=== PATIENT | male | born 1960 | race Caucasian/White ===

== ENCOUNTER 2023-03-06 16:11 | Emergency (ER) | payer OTHER, SELFPAY ==
[2023-03-06 16:17] VITALS: BP 150/79; PULSE 86; RESP 16; TEMP 36.7; O2SAT 97
--- NOTE | 2023-03-06 16:32 | PC.NURSE ---
States that he was slightly exerting himself more than usual. 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 Pt states that his veins are more pronounced than usual. Pt denies any trauma or injury. Pt has no redness or swelling to either calf. Denies any blood thinners. Hx migraines, HTN,
--- NOTE | 2023-03-06 16:50 | ED.EXTPRO ---
HPI - Extremity Problem General Chief complaint: Extremity Problem,Nontraumatic Stated complaint: left leg pain Time Seen by Provider: 03/06/23 16:49 Source: patient History of Present Illness HPI Narrative: Patient is 62 years old white male came to the emergency room by private car complaining of calf pain bilaterally mainly on the left side started 2 days ago. 3 days ago patient went to the a [employer] looking for something for his car, quite a bit of walking on even ground and up and down presenting to material for 2-1/2 hours, did not have any complaint at that day, work-up at the second day with the above symptoms. He denies any trauma, shortness of breath, fever, chills or swelling of the leg. Related Data Home Medications Medication Instructions Recorded Confirmed dexamethasone 4 mg tablet 4 mg PO BID 03/04/23 03/04/23 lisinopril 40 mg tablet 40 mg PO DAILY 03/04/23 03/04/23 Allergies Allergy/AdvReac Type Severity Reaction Status Date / Time No Known Allergies Allergy Verified 03/06/23 16:30 Review of Systems Review of Systems: All systems reviewed & are unremarkable except as noted in HPI and below PMFSH Past Medical History Medical History HTN (hypertension) Surgical History Surgical History History of fusion of cervical spine History of lumbar fusion L4-5 History of tibial fracture s/p ORIF R Family History Family History Father Lung cancer Mother Lung cancer Hypertension Social History Social History Smoking status: Never smoker Alcohol intake: never Substance use: never Living arrangements: with family Occupation/Education: occupation Gender identity (if verbalized by the patient): Male Exam Narrative: General appearance: Well-developed, well-nourished Skin: Normal color , Leg examination bilaterally showed no acute abnormality, no tenderness, no swelling, no erythema, no rash, no edema Chest and respiratory: Airway patent, no respiratory distress, no accessory muscle use Heart: Regular rate/rhythm Abdomen: Soft, nontender, no organomegaly, quiet bowel sounds Vascular: Normal peripheral pulses, normal capillary refill. Musculoskeletal: Normal range of motion, nontender back Neurologic: Alert and oriented ?3, BRO[place]MARE BARN GROOM is normal as tested, no gross motor deficit Course Reevaluation(s) Reevaluation #1: No new changes compared to on arrival to the ED. Patient declined to take any pain medication in the ER. Date: 03/06/23 Time: 17:59 Vital Signs Vital signs: Vital Signs Temperature 36.7 C 03/06/23 16:17 Pulse Rate 86 03/06/23 16:17 Respiratory Rate 16 03/06/23 16:17 Blood Pressure 150/79 H 03/06/23 16:17 Pulse Oximetry 97 03/06/23 16:17 Oxygen Delivery Room Air 03/06/23 16:17 Temperature 36.7 C 03/06/23 16:17 Pulse Rate 86 03/06/23 16:17 Respiratory Rate 16 03/06/23 16:17 Blood Pressure 150/79 H 03/06/23 16:17 Pulse Oximetry 97 03/06/23 16:17 Oxygen Delivery Room Air 03/06/23 16:17 MDM - Extremity (Nontraumatic) MDM Narrative Medical decision making narrative: Patient presents with calf pain bilaterally mainly on the left side, physical examination was unremarkable, differential diagnosis muscle strain/sprain is my concern after 2-1/2 hours working in the [employer]. D-dimer came back within normal limit, the probability of deep vein thrombosis is extremely less likely. Patient to be discharged home on Tylenol, ibuprofen as needed.
[2023-03-06 17:48] LABS: D Dimer < 0.27 ug/mL (<0.48)
[2023-03-06 18:16] VITALS: BP 138/68; PULSE 78; RESP 16; TEMP 36.8; O2SAT 98
== END 2023-03-06 18:18 | disposition home or self-care (01) ==
PROVIDERS: Emergency Provider Emergency Medicine; PCP Family Medicine
DX: M79.662 Pain in left lower leg (principal); I10 Essential (primary) hypertension
CPT/HCPCS: 36415; 85380; 99283

== ENCOUNTER 2023-04-13 11:02 | Outpatient (CLI) | payer OTHER, SELFPAY ==
[2023-04-13 12:12] LABS: Creatine Kinase 418 U/L (55-170)
[2023-04-13 12:15] LABS: Rheumatoid Factor < 12.0 IU/ML (<12)
[2023-04-13 12:39] LABS: Free T4 Free Thyroxine 1.04 ng/mL (0.78-2.19)
== END 2023-04-13 11:03 | disposition home or self-care (01) ==
PROVIDERS: PCP Family Medicine; Visit Provider Physician Assistant
DX: G47.00 Insomnia, unspecified (principal); M54.12 Radiculopathy, cervical region; M60.9 Myositis, unspecified; R20.2 Paresthesia of skin; R25.1 Tremor, unspecified; R25.3 Fasciculation
CPT/HCPCS: 36415; 82550; 84439; 84443; 86430

== ENCOUNTER 2023-04-23 06:33 | Outpatient (CLI) | payer OTHER, SELFPAY ==
--- NOTE | ~2023-04-23 | US_ITS ---
EXAMINATION: US venous doppler [facility] DATE: 04/23/2023 07:36 INDICATION: Localized lower limb swelling TECHNIQUE: Grayscale ultrasound images without and with compression and Doppler ultrasound images of the bilateral lower extremity veins were obtained. COMPARISON: None. FINDINGS: The visualized portions of right common femoral vein, profunda (deep) femoral vein, femoral vein, pop liteal vein, posterior tibial veins, peroneal veins, gastrocnemius vein and greater saphenous vein ou tflow are patent. The visualized portions of left common femoral vein, profunda femoral vein, femoral vein, popliteal v ein, posterior tibial veins, peroneal veins, gastrocnemius vein and greater saphenous vein outflow ar e patent. IMPRESSION: 1. No deep venous thrombosis in either lower limb. Reviewed, dictated and finalized at location L.
== END 2023-04-23 06:34 | disposition home or self-care (01) ==
PROVIDERS: PCP Family Medicine; Visit Provider Physician Assistant
DX: R60.0 Localized edema (principal)
CPT/HCPCS: 93970

== ENCOUNTER 2023-05-11 06:40 | Outpatient (CLI) | payer OTHER, SELFPAY ==
--- NOTE | ~2023-05-11 | MR_ITS ---
EXAMINATION: MR cervical spine wo con DATE: 05/11/2023 07:37 INDICATION: Cervical radiculopathy TECHNIQUE: Magnetic resonance imaging (MRI) of the cervical spine was performed without intravenous c ontrast. Sequences included sagittal T2-weighted FSE, sagittal T2-weighted FS FSE, sagittal T1-weight ed FSE, axial MERGE and axial T2-weighted FSE. COMPARISON: None FINDINGS: 2 mm retrolisthesis C6 on C7 and 1 mm anterolisthesis C7 on T1. Discectomy and anterior spinal fusion with anterior plate and screw fixation at C5-C6. Remaining vertebral body heights are normal. Bone marrow signal intensity is normal. Moderate disc height loss at C6-C7 and mild disc height loss at C2 -C3 through C4-C5 and at C7-T1. Cord signal intensity is normal. The visualized cervical soft tissues are unremarkable. The following disc levels are specifically discussed: C2-C3: The disc does not extend beyond the endplate margin. There is mild left and moderate right unc overtebral joint osteoarthritis. There is mild bilateral facet joint osteoarthritis. There is mild bi lateral neural foraminal stenosis. There is no central canal stenosis. C3-C4: The disc does not extend beyond the endplate margin. There is mild right and moderate left unc overtebral joint osteoarthritis. There is mild right and moderate left facet joint osteoarthritis. Th ere is mild right and moderate left neural foraminal stenosis. There is no central canal stenosis. C4-C5: Disc is mildly bulging. There is mild bilateral uncovertebral joint osteoarthritis. There is m ild bilateral facet joint osteoarthritis. There is mild left and moderate right neural foraminal sten osis. There is mild central canal stenosis. C5-C6: Mild hypertrophic changes extending across the right paracentral portion of the fused disc spa ce. There is mild bilateral facet joint osteoarthritis. There is mild right and mild to moderate left neural foraminal stenosis. There is mild central canal stenosis with indentation of the right ventra l surface of the cord. C6-C7: Disc is bulging with central disc extrusion with disc material extending 4 mm caudal to the le ken of the superior endplate of C7. There is moderate left and severe right uncovertebral joint osteo arthritis. There is mild bilateral facet joint osteoarthritis. There is moderate bilateral neural for aminal stenosis. There is no central canal stenosis. C7-T1: The disc does not extend beyond the more posterior T1 endplate margin. There is no uncovertebr al joint osteoarthritis. There is severe bilateral facet joint osteoarthritis. There is moderate bila teral neural foraminal stenosis. There is no central canal stenosis. IMPRESSION: 1. Moderate cervical spondylosis with instrumented C5-C6 anterior spinal fusion. Reviewed, dictated and finalized at location A. IMPRESSION: 1. Moderate cervical spondylosis with instrumented C5-C6 anterior spinal fusion .
== END 2023-05-11 06:41 | disposition home or self-care (01) ==
PROVIDERS: PCP Family Medicine; Visit Provider Physician Assistant
DX: S14.3XXA Injury of brachial plexus, initial encounter (principal); X58.XXXA Exposure to other specified factors, initial encounter; M47.22 Other spondylosis with radiculopathy, cervical region
CPT/HCPCS: 72141

== ENCOUNTER 2023-07-14 14:30 | Outpatient (CLI) | payer OTHER, SELFPAY ==
--- NOTE | ~2023-07-14 | MR_ITS ---
EXAMINATION: MR lumbar spine wo con DATE: 07/14/2023 15:04 INDICATION: Dorsalgia, unspecified. TECHNIQUE: Magnetic resonance imaging (MRI) of the lumbar spine was performed without intravenous con trast. COMPARISON: None FINDINGS: There is 6 degrees levocurvature of lumbar spine. There is 3 mm retrolisthesis of L2 on L3, L3 on L4, and L4 on L5. There are Schmorl's nodes at multiple levels. There is mild chronic anterior wedging of T12 and L1 vertebral bodies. There is mildly decreased disc height at L2-L3, L3-L4, and L 4-L5. The distal spinal cord signal intensity is normal. The conus medullaris is at L1-L2. The follow ing disc levels are specifically discussed: L1-L2: The disc is mildly bulging. There is moderate right and mild left facet joint osteoarthritis. There is mild bilateral neural foraminal stenosis. There is no central canal stenosis. L2-L3: The disc is bulging. There is mild right and severe left facet joint osteoarthritis. There is mild right and moderate left neural foraminal stenosis. There is mild central canal stenosis. L3-L4: The disc is bulging and has an annular fissure. There is moderate bilateral facet joint osteoa rthritis. There is moderate bilateral neural foraminal stenosis. There is mild central canal stenosis with posterior decompression. L4-L5: The disc is bulging and has an annular fissure. There is moderate right and severe left facet joint osteoarthritis. There is moderate bilateral neural foraminal stenosis. There is mild central ca nal stenosis with posterior decompression. L5-S1: The disc is bulging and has an annular fissure. There is mild bilateral facet joint osteoarthr itis. There is mild bilateral neural foraminal stenosis. There is mild central canal stenosis with po sterior decompression. IMPRESSION: 1. Moderate lumbar spondylosis. Reviewed, dictated and finalized at location E.
== END 2023-07-14 14:31 | disposition home or self-care (01) ==
PROVIDERS: PCP Family Medicine; Visit Provider Neurological Surgery
DX: M54.9 Dorsalgia, unspecified (principal); M43.06 Spondylolysis, lumbar region
CPT/HCPCS: 72148

== ENCOUNTER 2023-12-29 08:02 | Day surgery (SDC) | payer OTHER, SELFPAY ==
--- NOTE | ~2023-12-29 | XR_ITS ---
EXAMINATION: XR fluoroscopy no charge DATE: 12/29/2023 10:34 INDICATION: Lumbar spinal stenosis with neurogenic claudication. Lumbar radiculopathy. TECHNIQUE: 38 intraoperative fluoroscopic views of the lumbar spine were obtained. I was not present. Fluoroscopy exposure time was 74 seconds. COMPARISON: None. FINDINGS: There is moderate lumbar spondylosis. There is a needle for selective nerve root block at L 4. IMPRESSION: 1. Moderate lumbar spondylosis. 2. Right L4 nerve root block. Reviewed, dictated and finalized at location E.
[2023-12-29 09:34] VITALS: BP 123/70; PULSE 74; RESP 14; TEMP 36.7; O2SAT 99
--- NOTE | 2023-12-29 09:42 | PM.HPGS ---
History of Present Illness History of Present Illness Consent: Risks, benefits, and alternatives have been discussed and questions answered. Patient agrees to proceed with procedure. Chief complaint: Lumbar Spinal Stenosis w/Neurogenic Claudication Narrative: Surjit Flaherty is a 63 year old male with chronic, recalcitrant and disabling right lumbar radiculopathic pain secondary to lumbar spondylosis/stenosis with failure to respond to aggressive conservative measures including PT, oral and topical analgesics, opioid and nonopioid analgesics, rest, time and activity/behavioral modification over the past 1-2 years who presents for diagnostic/ therapeutic L4 selective nerve root block with steroid under fluoroscopic guidance and with contrast control. Review of Systems Review of Systems: Patient denies any new infectious, allergic, cardiopulmonary, neurologic or constitutional symptoms or changes in activity tolerance or exercise capacity including new or progressive SOB/SCHUMACHER, peripheral edema, productive cough, dysuria, nausea/vomiting, diarrhea, weight change, fevers/chills/night sweats, new or progressive neurologic deficit, cognitive or mood changes since last seen, except as documented in the HPI. All systems reviewed & are unremarkable except as noted in HPI and below PMFSH Past Medical History Medical History HTN (hypertension) Surgical History Surgical History History of fusion of cervical spine History of lumbar fusion L4-5 History of tibial fracture s/p ORIF R Family History Family History Father Lung cancer Mother Lung cancer Hypertension Social History Social History Smoking status: Never smoker Second hand tobacco smoke exposure: No Alcohol intake: current Alcohol use details: rarely Substance use: never Substance use type: does not use Lack of Transportation: No Lack of Food: Never True Current Housing: I Have Housing Concerned About Future Housing: No Difficulty Paying Gas/Electric Bills: No Difficulty Paying for Meds: No Currently Unemployed: YES Education: Master's Degree or Higher Difficulty w/ Childcare or Family Care: No Living arrangements: with family Occupation/Education: occupation Gender identity (if verbalized by the patient): Male Spiritual care concerns: No Meds Home Medications and Allergies Home Medications Medication Instructions Recorded Confirmed Type lisinopril 40 mg tablet 40 mg PO DAILY 03/04/23 12/29/23 History hydrocodone 5 mg-acetaminophen 325 1 tablet PO Q8H PRN pain #10 tabs 11/23/23 12/29/23 Rx mg tablet acetaminophen 500 mg tablet 750 mg PO Q6H PRN Pain 12/11/23 12/29/23 History gabapentin 100 mg capsule 100 - 200 mg PO HS 12/11/23 12/29/23 History (Neurontin) tamsulosin 0.4 mg capsule 0.4 mg PO QHS PRN other 12/11/23 12/29/23 History topiramate 25 mg tablet 25 mg PO HS 12/11/23 12/29/23 History Allergies Allergy/AdvReac Type Severity Reaction Status Date / Time No Known Allergies Allergy Verified 12/29/23 09:20 Vital Signs Vital Signs - 24 hr 12/29/23 09:34 Temperature 98.0 F Pulse Rate 74 Respiratory Rate 14 Blood Pressure 123/70 Pulse Oximetry 99 Oxygen Delivery Room Air Exam Narrative: The patient's physical exam is essentially unchanged from prior examination on 11/23/2023. Specifically, patient demonstrates normal lung capacity, tidal volume and respiratory rate without wheezes, crackles, rales or rubs. Heart rate and rhythm are regular without murmurs, gallops or rubs. No JVD. Pulses 2+ globally without increasing peripheral edema. AAOx3, NC/AT without acute distress or altered consciousness. Speech, cognition, mood and judgment at baseline and within normal limits. Assessment
--- NOTE | 2023-12-29 09:45 | WPDHPUPDATE1 ---
History and Physical Update Update Date/Time: 12/29/23 09:45 History and Physical has been reviewed, including an updated exam of the patient. There are NO changes in the patient's condition. Risks, benefits, and alternatives have been discussed and questions answered. Patient agrees to proceed with procedure.
--- NOTE | 2023-12-29 09:45 | W.PM.PROC2 ---
Procedure Note - Detailed Date of Procedure 12/29/23 Pre-op Diagnosis Lumbar Spinal Stenosis w/Neurogenic Claudication , lumbar radiculopathy Post-op Diagnosis Same Procedure Performed Right Lumbar selective nerve root block via Transforaminal approach under Fluoroscopic Guidance and with Contrast Control at L4.. Surgeon Hector Cain MD Anesthesia Local Description of Procedure INFORMED CONSENT: Risks, benefits and alternatives to the procedure were discussed in detail with the patient who expressed explicit understanding and consent to proceed. Patient was informed verbally and in written form regarding the risks associated with the procedure including the low risk of serious infection, bleeding/bruising, allergic reaction, nerve or organ injury, paralysis, procedural site pain or discomfort, worsening pain and/or mobility, failure to treat and/or disfigurement. The patient expressed explicit understanding and consent to proceed. All materials required for the procedure were available prior to procedure start. Site and side was marked prior to procedure and confirmed in the presence of the patient. PROCEDURE IN DETAIL: The patient was brought to the procedural suite and placed in the prone position. Patient was made comfortable with use of pillows under the head/chest, hips and ankles. Skin overlying the injection site was prepared broadly with ChloraPrep applicator and draped in a sterile manner. Aseptic technique was employed throughout. The endplates of the vertebral body at the site of interest were aligned in the AP view. Ipsilateral oblique angulation was utilized to better visualize the neuroforamen of interest. Local anesthesia was established by infiltration with approximately 5 mL of 2% lidocaine via a 1-1/2 inch 27-gauge needle. A 22-gauge 3.5 inch Adelita (pencil point) spinal needle was advanced until the needle approached the 6 o'clock position on the pedicle just superior to the exiting nerve root. on the Right at the L4 nerve root within the L4-5 neural foramen. Lateral view was utilized to confirm appropriate position of the needle tip within the superior and posterior portion of the respective foramen. In an AP view, 1 mL of Omnipaque 300 contrast medium was injected after negative aspiration for CSF, blood or other bodily fluid, showing appropriate neurogram without evidence of intravascular or intrathecal spread of contrast. Digital subtraction imaging was used with an additional 1ml of the same contrast medium to confirm absence of intravascular contrast spread. A 2mL solution containing 3 mg of betamethasone in 0.5% preservative-free bupivacaine was injected after negative repeat aspiration. Appropriate spread of the injectate was confirmed with washout of previously injected contrast. No parasthesias were elicited. Needle was removed completely intact without difficulty. Images were saved and documented in the patient chart. Patient's skin was cleaned and sterile bandage applied. The patient tolerated the procedure well. The patient was transported to the recovery area in stable condition where they were observed for an appropriate amount of time prior to discharge, without evidence of complication. The patient was instructed to avoid excessive activity for the next 48 hours, including climbing and frequent use of stairs. Showers only for 48 hours. They were instructed not to drive or operate heavy machinery for 24 hours. They are to monitor for severe headaches, fevers, chills, night sweats, erythema/swelling at the site or any other signs of infection, bleeding/bruising, bowel or bladder changes as well as new pain, weakness or numbness in the upper or lower extremity. Should they notice these changes, they are instructed to call our office immediately or report directly to the nearest Emergency Department if no answer or if after posted office hours. COMPLICATIONS: None COMMENTS: no paresthesias elicited. Neurogram showe
[2023-12-29 10:19] VITALS: BP 116/63; PULSE 70; RESP 14; O2SAT 98
[2023-12-29 10:24] VITALS: BP 105/58; PULSE 64; RESP 14; O2SAT 98
[2023-12-29 10:29] VITALS: BP 105/56; PULSE 72; RESP 15; O2SAT 98
[2023-12-29] MEDS: BETAMETHASONE SODIUM PHOSPHATE PF INJ 6 MG/ML VIAL 3 MG INFILTRATE (10:30)
[2023-12-29] MEDS: BUPivacaine HCL 0.5% 10 ML AMP 1.5 ML INFILTRATE (10:30)
[2023-12-29] MEDS: LIDOCAINE HCL 2% PF INJ 5 ML VIAL 3 ML INFILTRATE (10:31)
[2023-12-29] MEDS: LIDOCAINE HCL 1% PF INJ 5 ML VIAL 2 ML INFILTRATE (10:32)
[2023-12-29 10:41] VITALS: BP 127/72; PULSE 73; RESP 16; O2SAT 100
== END 2023-12-29 10:50 | disposition home or self-care (01) ==
PROVIDERS: PCP Family Medicine; Visit Provider Anesthesiology Pain Medicine
PROC: (CPT 64483; principal; 2023-12-29 10:00)
DX: M54.16 Radiculopathy, lumbar region (principal); M48.062 Spinal stenosis, lumbar region with neurogenic claudication
CPT/HCPCS: 64483; 99199

== ENCOUNTER 2024-03-02 10:01 | Outpatient (CLI) | payer OTHER, SELFPAY ==
--- NOTE | ~2024-03-02 | XR_ITS ---
XR hip BI 2V w AP pelvis Ordering provider: Boby Fuller MD History: . M25.559 - Pain in unspecified hip . Comparison: None. FINDINGS: BONES: No acute fracture or dislocation. HIP JOINT SPACES: Normal. SACROILIAC JOINT SPACES/LUMBAR SPINE: The sacroiliac joint spaces are normal. Mild degenerative weber es of the visualized lower lumbar spine. Postoperative changes in the lower lumbar area. PUBIC SYMPHYSIS: Normal. SOFT TISSUES: Normal. IMPRESSION: No acute osseous abnormality of the bilateral hips and pelvis. Reviewed, dictated and finalized at location A.
== END 2024-03-02 10:02 ==
PROVIDERS: PCP Family Medicine; Visit Provider Family Medicine
DX: M25.559 Pain in unspecified hip (principal)
CPT/HCPCS: 73521

== ENCOUNTER 2024-06-20 07:53 | Outpatient (CLI) | payer OTHER, SELFPAY ==
--- NOTE | ~2024-06-20 | MR_ITS ---
MRI of the brain Clinical History: Anesthesia of skin Technique: Axial and sagittal T1-weighted images were acquired. These were followed by axial T2-weigh po, diffusion weighted, gradient, and FLAIR images. Findings: No signal abnormality seen in the brain parenchyma. No acute infarct, intracranial hemorrha ge, or mass lesion. Ventricles and subarachnoid spaces are unremarkable. Orbits are unremarkable. Paranasal sinuses and m astoid air cells are clear. Major intracranial flow voids are intact. Sagittal midline structures are intact. IMPRESSION: Unremarkable exam. Reviewed, dictated and finalized at location M. IMPRESSION: Unremarkable exam.
--- NOTE | ~2024-06-20 | CT_ITS ---
CT of the Abdomen and Pelvis: Indication: Localized edema Technique: 2.5 mm axial scans were obtained through the abdomen and pelvis following intravenous adm inistration of 100 cc of Omnipaque 350. Dose reduction technique was used on this scan by utilizing a utomated exposure control and iterative reconstruction technique. The dose-length product (DLP) was 7 52.28 mGy-cm. Findings: Scans through the lung bases are unremarkable. The liver, spleen, pancreas, gallbladder, and adrenal glands are within normal limits. Right upper po le simple cyst present. There is a 1.4 cm indeterminate density partially exophytic mass at the left lower renal pole (axial image 92). No evidence of aortic aneurysm. No lymphadenopathy. No bowel obstruction or bowel wall thickening. There is no evidence to suggest acute appendicitis. Images through the pelvis were performed. Urinary bladder unremarkable. No pelvic mass evident. No as cites. Penile prosthesis with reservoir present. Impression: 1.4 cm indeterminate left lower pole renal mass. Pre and postcontrast CT or MR recommended to assess for solid lesion versus cystic lesion. Reviewed, dictated and finalized at [facility]. Impression: 1.4 cm indeterminate left lower pole renal mass. Pre and postcontrast CT or MR recommended to assess for solid lesion versus cystic lesion.
[2024-06-20 08:16] LABS: Estimated Glomerular Filt Rate > 60
== END 2024-06-20 07:54 | disposition home or self-care (01) ==
PROVIDERS: PCP Family Medicine; Visit Provider Physician Assistant
DX: N28.89 Other specified disorders of kidney and ureter (principal); R20.0 Anesthesia of skin; R60.0 Localized edema
CPT/HCPCS: 70551; 74177; Q9967

== ENCOUNTER 2024-06-30 08:03 | Outpatient (CLI) | payer OTHER, SELFPAY ==
--- NOTE | ~2024-06-30 | CT_ITS ---
CT of the Abdomen: Indication: Left lower pole renal mass Technique: 2.5 mm axial scans were obtained through the abdomen prior to and following intravenous a dministration of 100 cc of Omnipaque 350. Dose reduction technique was used on this scan by utilizing automated exposure control and iterative reconstruction technique. The dose-length product (DLP) was 1035.25 mGy-cm. COMPARISON: 06/20/2024 Findings: Scans through the lung bases demonstrates stable 6 mm nodule along the right fissure near the hilum (axial image 8).. The liver, spleen, pancreas, gallbladder, and adrenal glands are within normal limits. Stable simple right renal cyst. 1.2 cm lesion at the lower pole left kidney is hyperdense on precontrast images, wi th no postcontrast enhancement, most compatible with hyperdense/hemorrhagic cyst. No evidence of aort ic aneurysm. No lymphadenopathy. Visualized bowel loops are unremarkable. No ascites. Impression: The left lower pole renal mass is consistent with a hyperdense/hemorrhagic cyst. Reviewed, dictated and finalized at location . Impression: The left lower pole renal mass is consistent with a hyperdense/hemorrhagic cyst .
== END 2024-06-30 08:04 | disposition home or self-care (01) ==
PROVIDERS: PCP Family Medicine; Visit Provider Physician Assistant
DX: N28.89 Other specified disorders of kidney and ureter (principal)
CPT/HCPCS: 74170; Q9967

== ENCOUNTER 2024-08-02 11:34 | Emergency (ER) | payer OTHER, SELFPAY ==
[2024-08-02 11:37] VITALS: BP 123/68; PULSE 87; RESP 18; TEMP 36.4; O2SAT 97
--- NOTE | 2024-08-02 12:33 | ED_ITS ---
HPI - Extremity Problem General Chief complaint: Extremity Problem,Nontraumatic Stated complaint: RLE feels weird, pt. requesting d-dimer Time Seen by Provider: 08/02/24 12:21 Source: patient Mode of arrival: ambulatory Limitations: no limitations History of Present Illness HPI Narrative: This is a 64-year-old male who presents to the ED for chief complaint of RLE pain intermittently over the past few days. Reports that this has actually been a problem over the past year. He is requesting just a D-dimer today as it is feeling ?just different? compared to the left leg. Denies fevers, chills, nausea, vomiting, numbness, weakness. Related Data Home Medications Medication Instructions Recorded Confirmed lisinopril 40 mg tablet 40 mg PO DAILY 03/04/23 05/19/24 acetaminophen 500 mg tablet 750 mg PO Q6H PRN Pain 12/11/23 05/19/24 gabapentin 100 mg capsule 100 - 200 mg PO HS 12/11/23 05/19/24 (Neurontin) tamsulosin 0.4 mg capsule 0.4 mg PO QHS PRN other 12/11/23 05/19/24 topiramate 25 mg tablet 25 mg PO HS 12/11/23 05/19/24 Allergies Allergy/AdvReac Type Severity Reaction Status Date / Time No Known Allergies Allergy Verified 08/02/24 11:36 Review of Systems Review of Systems: All systems as dictated in HPI [facility] Past Medical History Medical History HTN (hypertension) Surgical History Surgical History History of fusion of cervical spine History of lumbar fusion L4-5 History of tibial fracture s/p ORIF R Family History Family History Father Lung cancer Mother Lung cancer Hypertension Social History Social History Smoking status: Never smoker Second hand tobacco smoke exposure: No Alcohol intake: current Alcohol use details: rarely Substance use: never Substance use type: does not use Lack of Transportation: No Lack of Food: Never True Current Housing: I Have Housing Concerned About Future Housing: No Difficulty Paying Gas/Electric Bills: No Difficulty Paying for Meds: No Currently Unemployed: YES Education: Master's Degree or Higher Difficulty w/ Childcare or Family Care: No Living arrangements: with family Occupation/Education: occupation Gender identity (if verbalized by the patient): Male Spiritual care concerns: No Exam Narrative: GENERAL: Well-appearing, well-nourished, and in no acute distress. HEAD: Normocephalic, atraumatic. EYES: PERRLA and EOMI. ENT: Nares clear, no rhinorrhea or epistaxis. Mucous membranes moist. Oropharynx without tonsillar hypertrophy exudate or other lesions. NECK: Supple. No adenopathy or masses. CHEST: No respiratory distress. Clear to auscultation. No wheezes rales or rhonchi HEART: Regular rate and rhythm. No murmur heard. Normal peripheral pulses. ABDOMEN: Soft, nontender, nondistended, normal active bowel sounds. MSK: Normal range of motion. No edema. SKIN: Warm, dry, no rash. NEURO: Alert and oriented x4. No focal deficits. PSYCH: Normal mood and affect. Course Vital Signs Vital signs: Vital Signs Temperature 97.6 F 08/02/24 11:37 Pulse Rate 87 08/02/24 11:37 Respiratory Rate 18 08/02/24 11:37 Blood Pressure 123/68 08/02/24 11:37 Pulse Oximetry 97 08/02/24 11:37 Oxygen Delivery Room Air 08/02/24 11:37 Temperature 97.9 F 08/02/24 13:44 Pulse Rate 78 08/02/24 13:44 Respiratory Rate 16 08/02/24 13:44 Blood Pressure 124/72 08/02/24 13:44 Pulse Oximetry 98 08/02/24 13:44 Oxygen Delivery Room Air 08/02/24 11:37 MDM - Extremity (Nontraumatic) MDM Narrative Medical decision making narrative: This is a 64-year-old male who presents to the ED for chief complaint of right lower extremity pain off and on for the past year and worse today. Reports it is just uncomfortable.. Vitals are normal. Exam is unremarkable. No history of DVT in the past. He is specifically requesting a D-dimer lab today and does not want any further evaluation. D-dimer is negative. Patient will be discharged in stable condition. Supportive measures discussed and return precautions given. Patient is understanding and agreeable with plan for discharge with PCP follow-up. Lab Data Labs: Lab Results 08/02/24 Range/Units 12:28 D-Dimer 0.29 (<0.48) ug/mL Discharge Plan Discharge Clinical Impression: Leg pain, right Patient Disposition: Home, Self-Care Condition: Stable Instructions: Antibiotic Form Additional Instructions: exam and blood work today reassuring. Please follow-up with PCP on this issue. Continue with your normal pain medications as prescribed. If you have any new or worsening symptoms please return to the ER for further evaluation. Prescriptions: No Action lisinopril 40 mg tablet 40 mg PO DAILY hydrocodone-acetaminophen 5-325 mg tablet 1 tablet PO Q8H PRN (Reason: pain) Qty: 10 0RF Rx Instructions: Take 1 tab p.o. Q 8-12 hours maximum 2 per day topiramate 25 mg tablet 25 mg PO HS acetaminophen 500 mg Tablet 750 mg PO Q6H PRN (Reason: Pain) tamsulosin 0.4 mg capsule 0.4 mg PO QHS PRN (Reason: other) gabapentin [Neurontin] 100 mg capsule 100 - 200 mg PO HS Follow-up/Referrals: Boby Fuller MD [Primary Care Provider] - Time of Disposition: 13:34
[2024-08-02 13:19] LABS: D Dimer 0.29 ug/mL (<0.48)
[2024-08-02 13:44] VITALS: BP 124/72; PULSE 78; RESP 16; TEMP 36.6; O2SAT 98
== END 2024-08-02 13:47 | disposition home or self-care (01) ==
PROVIDERS: Emergency Provider Physician Assistant; PCP Family Medicine
DX: M79.604 Pain in right leg (principal); I10 Essential (primary) hypertension; Z79.899 Other long term (current) drug therapy; Z98.1 Arthrodesis status
CPT/HCPCS: 36415; 85380; 99283

== ENCOUNTER 2024-12-06 10:43 | Outpatient (CLI) | payer OTHER, SELFPAY ==
--- OUTSIDE RECORDS SUMMARY | 2024-12-06 12:41 | XMS_ITS | Clinical Summary ---
Author Organization [facility] Address [address] [place] [address] Care Team Providers Care Furniture Sprayer Name Role Phone Feng Forrester MD Primary Care Provider [phone] Source Comments [facility],non-owned Affiliates and Associated Physician Practices is amultiple site organization consisting of ambulatory clinics and hospital sitesin [place], [place], [place] and [place]. This disclosure is being madepursuant to the Care Everywhere program and may not contain all information available regarding this patient. Last updated 18.[facility] Allergies Active Allergy Reactions Criticality Noted Date Comments Lidocaine Unknown Medications Be aware that medications may not be up to date on this document. Always verify current medications with the patient. No known medications Social History Tobacco Use Types Packs/Day Years Used Date Smoking Tobacco: Never Assessed Sex and Gender Information Value Date Recorded Sex Assigned at Not on file Gender Identity Not on file Sexual Orientation Not on file Plan of Treatment Health Maintenance Due Date Last Done Comments COLOGUARD (AGES 45-75) - COL ON CA SCREENING 1962 COLON MONITORING 1962 COLONOSCOPY - COLON CA SCREENING 1962 CT COLONOGRAPHY - COLON CA SCREENING 1962 Colorectal Cancer Screening 1962 FIT - COLON CA SCREENING 1962 FLEX SIG - COLON CA SCREENING 1962 LIPID TESTING 1962 HIV SCREENING 1977 HEPATITIS C SCREENING 07/15/1980 DTAP/TDAP/TD VACCINES (1 - Tdap) 1981 PNEUMOCOCCAL VACCINE 50+ (1 of 1 - PCV) 2012 ZOSTER VACCINE (1 of 2) 2012 COVID-19 VACCINE (2023-2 5 season) 2024 INFLUENZA VACCINE (#1) 2024 09/14/2013 DEPRESSION SCREENING 09/14/2024 Respiratory Syncytial Virus (RSV) Vaccine Pt: or over 60 yrs (1 - 1-dose 75+ series) 2037 HEPATITIS B VACCINE Aged Out No longe r eligible based on patient's age to complete this topic HIB VACCINE Aged Out No longer eligi ble based on patient's age to complete this topic HPV VACCINE Aged Out No longer eligi ble based on patient's age to complete this topic MENINGOCOCCAL (Group B) VACC INE SHARED DECISION-MAKING Aged Out No longer eligibl e based on patient's age to complete this topic MENINGOCOCCAL GROUPS A/C/Y/W VACCINE Aged Out No longer eligible b ased on patient's age to complete this topic PNEUMOCOCCAL VACCINE Aged Out No long er eligible based on patient's age to complete this topic Care Teams Furniture Sprayer Relationship Specialty Start Date End Date Feng Forrester MD PCP - General 02/25/19
--- OUTSIDE RECORDS SUMMARY | 2024-12-06 12:41 | XMS_ITS | Referral Summary ---
Author Organization [facility] Physician Office Building [address] [place] [id number] Care Team Providers Care Publication Editor Name Role Phone Boby Fuller MD Primary Care Provider Allergies Active Allergy Reactions Criticality Noted Date Comments Lidocaine Rash Medium Medications lisinopril (PRINIVIL,ZESTR IL) 40 mg tablet Take by mouth. 06/17/2016 Active dexAMETHasone (DECADRON) 4 mg tablet Take 1 tablet (4 mg total) by mouth 2 (two) times a day as needed 2 04/10/2019 Active magnesium oxide (MAG-OX) 400 mg (241.3 mg elemental magnesium) tablet Take 1 tablet (400 mg total) by mouth 2 (two) times a day Active baclofen (LIORESAL) 20 mg tablet Take 1 tablet (20 mg total) by mouth daily Active topiramate (TOPAMAX) 25 mg tablet Take 1 tablet (25 mg total) by mouth 2 (two) times a day 05/10/2024 Active gabapentin (NEURONTIN) 100 mg capsule Take 1 capsule (100 mg total) by mouth 2 (two) times a day Active Active Problems Problem Noted Date Diagnosed Date Depression 05/03/2019 GERD (gastroesophageal reflux disease) 9 Male erectile disorder 08/29/2015 Social History Tobacco Use Types Packs/Day Years Used Date Smoking Tobacco: Never Passive Smoke Exposure: Never Smokeless Tobacco: Never Tobacco Cessation:Counseling Given: Not Answered Sex and Gender Information Value Date Recorded Sex Assigned at Not on file 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 Gender Identity Not on file Sexual Orientation Not on file Last Filed Vital Signs Vital Sign Reading Time Taken Comments Blood Pressure 145/88 05/13/2024 2:53 PM CDT Pulse 106 05/13/2024 2:53 PM CDT Temperature - - Respiratory Rate - - Oxygen Saturation - - Inhaled Oxygen Concentration - - Weight 96.6 kg (213 lb) 05/13/2024 2:53 PM CDT Height 175.3 cm (5' 9 ) 05/13/2024 2:53 PM CDT Body Mass Index 31.45 05/13/2024 2:53 PM CDT Plan of Treatment Not on file Insurance [facility] Member Subscriber Plan / Payer (Ef fective 2016-Present) Name:Surjit Flaherty MD Relation to Subscriber:Self Name:Surjit Flaherty MD Payer ID:[id number] (NAIC) Type: FOCUS RESEARCH Address: [address] [facility] H[facility]/PPO Address: [address] [address] [place] [address] [facility] H[facility]/PPO Address: [address] [address] [place] [address] Care Teams Publication Editor Relationship Specialty Start Date End Date Boby Fuller MD [address] [facility] [address] [place] [address] PCP - General Family Medicine 05/06/24
--- OUTSIDE RECORDS SUMMARY | 2024-12-06 12:41 | XMS_ITS | Clinical Summary ---
Author Organization [facility] Address [address] [place] [phone] Phone Care Team Providers Care Pipe Straightener Name Role Phone Doroteo Ruffin MD Primary Care Provider [phone] Allergies Active Allergy Reactions Criticality Noted Date Comments Lidocaine Rash Medium 01/12/2023 Medications baclofen (LIORESAL) 20 mg tablet Take 20 mg by mouth 1 time daily as needed. Active methylphenidate HCl (RITALIN) 20 mg tablet Take 20 mg by mouth 2 times daily. Active ramipriL (ALTACE) 10 mg capsule Take 10 mg by mouth daily. 12/21/2022 Active Active Problems Problem Noted Date Diagnosed Date Male erectile disorder 08/29/2015 Immunizations Immunization Administration Dates Next Due Influenza Seasonal Unspecified Formulation IM Family History Medical History Relation Name Comments Other Brother 1 Spinal Stenosis Other Brother 2 Spinal Stenosis Cancer Father Other Father smoker/Spinal S tenosis Cancer Mother High Cholesterol Mother Hypertension Mother Other Mother smoker Other Other Aunt Spinal Stenosis Other Sister Spinal Stenosis Relation Name Status Comments Brother 1 Brother 2 Father Mother Other Aunt Alive Sister Social History Tobacco Use Types Packs/Day Years Used Date Smoking Tobacco: Never Smokeless Tobacco: Never Alcohol Use Standard Drinks/Week Comments No 0 (1 standard drink = 0.6 oz pur e alcohol) Sex and Gender Information Value Date Recorded Sex Assigned at Not on file Legal Sex Male 12:46 PM CDT Gender Identity Not on file Sexual Orientation Not on file Last Filed Vital Signs Vital Sign Reading Time Taken Comments Blood Pressure 140/72 01/12/2023 9:14 AM CDT Pulse 70 01/12/2023 9:14 AM CDT Temperature 37.1 C (98.8 F) 08/12/2022 2:04 PM FITNESS AND WELLNESS MANAGER Respiratory Rate 16 08/30/2015 8:29 AM FITNESS AND WELLNESS MANAGER Oxygen Saturation 98% 01/12/2023 9:14 AM CDT Inhaled Oxygen Concentration - - Weight 91.2 kg (201 lb) 01/12/2023 9:14 AM CDT Height 172.7 cm (5' 8 ) 01/12/2023 9:14 AM CDT Body Mass Index 30.56 01/12/2023 9:14 AM CDT Plan of Treatment Health Maintenance Due Date Last Done Comments PNEUMOCOCCAL VACCINE 0-49 YE ARS (1 of 2 - PCV) 1968 COLORECTAL SCREENING 2007 Colorectal Cancer Screening 2007 FIT-DNA Q 3 years 2007 FIT/FOBT Q 1 year 2007 Flex Sig/CT Colonography Q 5 years 2007 RSV VACCINE (60+ or ) (1 - Risk 60-74 years 1-dose series) 2022 INFLUENZA VACCINE (#1) 2024 2, 08/13/2021, 09/09/2018, Additional history exists DTAP/TDAP/TD VACCINES (2 - Tdap) 07/15/2024 07/15/20 14 ZOSTER VACCINE Completed 07/01/2022, 04/07/2022 Medical Devices Implanted Type Area Bus Washer Device Identifier Shelf Expiration Date Model / Serial / Lot Kit Assemly Penile Impl [id number] - [id number] Implanted:Qty: 1 on 08/29/2015 by Malik White MD at [facility] Other N/A: Penis COLOPLAST 02/20/2020 [id number] / / [id number] Description:Coloplast penile components were processed on requisition,[id number]. [place] [employer] [place] 75ml [id number] - [id number] Implanted:Qty: 1 on 08/29/2015 by Malik White MD at [facility] Penile N/A: Penis COLOPLAST 03/25/2020 [id number] / / [id number] Cylinder Set W/Pump Angled Implanted:Qty: 1 on 08/29/2015 by Malik White MD at [facility] Penile N/A: Penis COLOPLAST 12/05/2019 [id number] / / [id number] Insurance [facility] PREFERRED Advance Directives For more information, please contact: [phone] * Full Code (Latest Code Status on File) Date Activated Date Inactivated Comments 08/29/2015 2:32 PM 08/30/2015 11:23 AM * Full Code Date Activated Date Inactivated Comments 08/29/2015 10:05 AM 08/29/2015 2:32 PM Care Teams Pipe Straightener Relationship Specialty Start Date End Date Doroteo Ruffin MD #[address] [address] PCP - General Internal Medicine 03/25/22
--- OUTSIDE RECORDS SUMMARY | 2024-12-06 12:41 | XMS_ITS | Continuity of Care Document ---
Author Organization [facility] Address [address] [place] [address] [address] [place] [address] Phone Care Team Providers Care Quill Fixer Name Role Phone Analisa Lagos Unavailable Unavailable Advance Directives Directive Yes / No Effective Date File Name No Information Encounters Encounter Description Practice Location Reason(s) For Visit Diagnoses Date Provider Providers Copied on Encounter [facility], [address], [place], [place], [id number], [place] tel:[phone] [facility] No Information 0 7-200 2 Yolis Hauser. [address] , [address], [place], [address], [place]. tel:[phone] Family History Family Member Type Diagnosis Age At Onset No Information Payers Payer name Insurance type Covered green party ID Authoriza tion(s) [facility] Out Of State [id number] Social History Type Description Quantity Date Captured [...]
--- OUTSIDE RECORDS SUMMARY | 2024-12-06 12:41 | XMS_ITS | Clinical Summary ---
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 Gender Identity Not on file Sexual Orientation Not on file Obstetrics History Last Filed Vital Signs Vital Sign Reading [...] 05/13/2024 2:53 PM CDT Plan of Treatment Health Maintenance Due Date Last Done Comments Colon Cancer Screening-Colonoscopy 1962 Depression Screening 1962 Hepatitis C Screening 1962 Prostate Cancer Screening-PSA 1962 Hepatitis B Screening 1980 Regular Well Visit/Exam 18-64 1980 Pneumococcal vaccine <65 (1 of 2 - PCV) 1981 Covid-19 Vaccine (4 - 2023-2 5 season) 2024 09/27/2021, 01/09/2021, 08/30/2020 Influenza Vaccine (#1) 2024 2, 08/13/2021, 09/09/2018, Additional history exists DTaP/Tdap/Td Vaccine (2 - Tdap) 07/15/2024 4 Zoster Vaccine Completed 07/01/2022, 04/07/2022 [place] [address] [facility]LY [facility] PREFERRED BL CHOICE PRF PPO [place] [facility] [phone] [place] [address] Care Teams Genetics Nurse Relationship Specialty Start Date End Date Boby Fuller MD [address] [facility] [address] [place] [address] PCP - General Family Medicine 05/06/24
--- OUTSIDE RECORDS SUMMARY | 2024-12-06 12:41 | XMS_ITS | Clinical Summary ---
Author Organization [facility] Address [address] [address] Phone Care Team Providers Care Cook Soup Name Role Phone Marilyn Jonse APRN, CNP Unavailable [phone] Marilyn Jones APRN, CNP Primary Care Provid er Allergies No known active allergies Medications baclofen (LIORESAL) 20 MG Tablet TAKE 1 TABLET BY MOUTH THREE TIMES DAILY NEEDED 2 Active benztropine (COGENTIN) 1 MG Tablet TAKE 1/2 TO 1 (ONE-HALF TO ONE) TABLET BY MOUTH IN THE MORNING TO HELP PREVENT EXCESS SWEATING FROM MEDICATIONS 2 Active methylphenidate (RITALIN) 20 MG TabletIndications :Attention deficit hyperactivity disorder (ADHD), predominantly inattentive type Take 1 Tablet by mouth 2 times daily. 60 Tablet 2 Active ramipril (ALTACE) 10 MG Capsule 3 Active potassium chloride SA (KLORCON M) 20 MEQ Tablet Controlled Release TAKE 2 TABLETS BY MOUTH ONCE DAILY 3 Active Sulfamethoxazole- Trimethoprim (BACTRIM DS PO) Take 400 mg by mouth in the morning and at bedtime. Active Magnesium Oxide (MAG-OX 400 PO) Take by mouth. Active ALPRAZolam (XANAX) 0.25 MG TabletIndications :Anxiety and depression Take 1 Tablet by mouth nightly as needed for Sleep or Anxiety. 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), predominantly inattentive type 01/30/2022 Benign prostatic hyperplasia with urinary freque ncy 05/30/2021 Depression 05/03/2019 GERD (gastroesophageal reflux disease) Resolved Problems Problem Noted Date Diagnosed Date Resolved Date Depression 05/02/2022 Immunizations Immunization Administration Dates Next Due Covid-19, Mrna, Lnp-s, Pf, 3 0 Mcg/0.3 Ml Dose ([employer]) 01/09/2021,08/30/2020 DTAP VACCINE 07/15/2014 Influenza Vaccine greater than 3 yrs 09/14/2013 Influenza Vaccine, Quadrivalent, PF 05/15,08/13/2021,09/09/2018,2016 Influenza, Seasonal, Injecta ble, Undefined 07/16/2015,09/14/2013 TB Skin Test 05/26/2022 Zoster Vaccine Recombinant 07/01/2022,04/07/2022 Family History Medical History Relation Name Comments Cancer Father thyroid Lung Cancer Father Dementia Mother Hypertension Mother Lung Cancer Mother Relation Name Status Comments Father Mother Social History Tobacco Use Types Packs/Day Years Used Date Smoking Tobacco: Never Smokeless Tobacco: Never Tobacco Cessation:Counseling Given: Yes Alcohol Use Standard Drinks/Week Comments No 0 (1 standard drink = 0.6 oz pur e alcohol) PHQ-2 Answer Date Recorded Total Score - Questions 1-9 0 01/12 Sex and Gender Information Value Date Recorded Sex Assigned at Not on file Legal Sex Male 8:40 PM CDT Gender Identity Not on file Sexual Orientation Not on file Last Filed Vital Signs Vital Sign Reading Time Taken Comments Blood Pressure 132/76 01/29/2023 7:42 AM CDT Pulse 77 01/29/2023 7:42 AM CDT Temperature 36.3 C (97.4 F) 01/29/2023 7:42 AM CDT Respiratory Rate 14 01/29/2023 7:42 AM CDT Oxygen Saturation 98% 01/29/2023 7:42 AM CDT Inhaled Oxygen Concentration - - Weight 93.9 kg (207 lb) 01/29/2023 7:42 AM CDT Height 175.3 cm (5' 9 ) 01/29/2023 7:42 AM CDT Body Mass Index 30.57 01/29/2023 7:42 AM CDT Plan of Treatment Health Maintenance Due Date Last Done Comments Hepatitis C Virus (HCV) Screening 1962 Pneumococcal Immunization (50+ years) (1 of 2 - PCV) 1981 Cologuard 2012 Immunochemical Fecal Occult Blood 2012 Respiratory Syncytial Virus (RSV) Immunization (Adult) (1 - Risk 60-74 years 1-dose series) 2022 Colonoscopy 02/26/2024 02/25/2019 Colorectal Cancer Screening 02/26/2024 Influenza Immunization (#1) 05/15/202405/15, 08/13/2021, 09/09/2018, Additional history exists SARS-COV-2 Immunization ( season) 2024 09/27/2021, 01/09/2021, 08/30/2020 02/25/2019 DTaP/Tdap/Td Immunization Discontinued 07/15/2014 Zoster Immunization Completed 07/01/2022, PSA Discussion Completed 01/29/2023, 02/12, 05/01/2021, Additional history exists Hepatitis B Immunization Aged Out No longer eligible based on patient's age to complete this topic Meningococcal Immunization (ACWY) Aged Out No longer eligible based on patient's age to complete this topic Rotavirus Immunization Aged Out No lo nger eligible based on patient's age to complete this topic Procedures Procedure Name Priority Date/Time Associated Diagnosis Comments PSA FREE & TOTAL Routine 01/29/2023 8:43 AM CDT Elevated PSA from Last 3 Months or Most Recently Relevant to Health Maintenance Results * PSA FREE & TOTAL (01/29/2023 8:43 AM CDT) Prostatic Specific Antigen, Free 0.77 ng/mL [facility] ARCH [id number] F 01/29/2023 6:13 PM CDT [facility] PSA, TOTAL (PROSTATIC SPECIFIC ANTIGEN) 2.67 <4.00 ng/mL [facility] ARCH [id number] B 01/29/2023 6:13 PM CDT [facility] PSA, % FREE 28.8 % 01/29/2023 6:13 PM CDT [facility] Comment: PSA NG/ML FREE PSA % EST PROB CANCER % 2.6- 4.0 0-27 24 4.1-10.0 0-10 56 11-15 28 16-20 20 21-25 16 >25 8 THESE ESTIMATES VARY WITH AGE, ETHNICITY, FAMILY HISTORY AND MELE RESULTS. THE DIAGNOSTIC USEFULNESS OF % FREE PSA HAS NOT BEEN ESTABLISHED IN PATIENTS WITH TOTAL PSA BELOW 2.6 NG/ML. IN MEN WITH A PSA LEVEL ABOVE 10 NG/ML, PROSTATE CANCER RISK IS DETERMINED BY TOTAL PSA ALONE. Blood Venipuncture / Unknown 01/29/2023 8:43 AM CDT 01/29/2023 9:00 AM CDT us Marilyn Jones APRN, CNP CHEMISTRY ORDERABLES Final Result [facility] [address] from Last 3 Months or Most Recently Relevant to Health Maintenance Insurance [facility] Care Teams Cook Soup Relationship Specialty Start Date End Date Marilyn Jones APRN, CNP [address] [address] PCP - General Advanced Practice Nurse 12/04/21 Marilyn Jones APRN, CNP [address] [address] Nurse Practitioner Advanced Practice Nurse 05/28/21
== END 2024-12-06 10:44 | disposition home or self-care (01) ==
LOC: ANHLAB 10:45
PROVIDERS: PCP Family Medicine; Visit Provider Physician Assistant
DX: R53.83 Other fatigue (principal)
CPT/HCPCS: 36415; 84443

== ENCOUNTER 2025-03-02 07:50 | Outpatient (CLI) | payer OTHER, SELFPAY ==
--- OUTSIDE RECORDS SUMMARY | 2025-03-02 07:56 | XMS_ITS | Clinical Summary ---
Author Organization [facility] Address [address] [place] [address] Care Team Providers Care Field Service Specialist Name Role Phone Feng Forrester MD Primary Care Provider [phone] Source Comments [facility] [employer],non-owned Affiliates and Associated Physician Practices is amultiple site organization consisting of ambulatory clinics and hospital sitesin [place], [place], [place] and [place]. This disclosure is being madepursuant to the Care Everywhere program and may not contain all information available regarding this patient. Last updated 18.[facility] [employer] Allergies Active Allergy Reactions Criticality Noted Date Comments Lidocaine Unknown Medications * Be aware that medications may not be up to date on this document. Alwaysverify current medications with the patient. 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
--- OUTSIDE RECORDS SUMMARY | 2025-03-02 07:56 | XMS_ITS | Continuity of Care Document ---
Author Organization [facility] Address [address] [place] [address] [address] [place] [address] Phone Care Team Providers Care Dividend Clerk Name Role Phone Analisa Lagos Unavailable Unavailable Advance Directives Directive Yes / No Effective Date File Name No Information Encounters Encounter Description Practice Location Reason(s) For Visit Diagnoses Date Provider Providers Copied on Encounter [facility], [address], [place], [place], [id number], [place] tel:[phone] [facility] No Information [phone] Yolis Hauser. [address] , [address], [place], [address], [place]. tel:[phone] Family History Family Member Type Diagnosis Age At Onset No Information Payers Payer name Insurance type Covered republican ID Authoriza tion(s) [facility] Out Of State [id number] Social History Type Description Quantity Date Captured [...]
--- OUTSIDE RECORDS SUMMARY | 2025-03-02 07:56 | XMS_ITS | Clinical Summary ---
Author Organization [facility] Address [address] [address] Phone Care Team Providers Care Enterprise Application Architect Name Role Phone Marilyn Jones APRN, CNP Unavailable [phone] Marilyn Jones APRN, CNP Primary Care Provid [...] Lnp-s, Pf, 3 0 Mcg/0.3 Ml Dose ([employer]) 01/09/2021,08/30/2020 DTAP VACCINE 07/15/2014 Influenza Vaccine greater [...] 7:42 AM CDT Height 175.3 cm (5' 9) 01/29/2023 7:42 AM CDT Body Mass Index 30.57 01/29/2023 7:42 AM CDT Plan of Treatment Health Maintenance Due Date Last Done Comments Hepatitis C Virus (HCV) Screening 1962 Pneumococcal Immunization (50+ years) (1 of 2 - PCV) 1981 Cologuard 2007 Immunochemical Fecal Occult Blood 2007 Respiratory Syncytial Virus (RSV) Immunization (Adult) (1 - Risk 60-74 years 1-dose series) 2022 Colonoscopy 02/26/2024 02/25/2019 Colorectal Cancer Screening 02/26/2024 SARS-COV-2 Immunization ( season) 2024 09/27/2021, 01/09/2021, 08/30/2020 Influenza Immunization (Season Ended) 2025 05/28/2022, 08/13/2021, 09/09/2018, Additional history exists DTaP/Tdap/Td Immunization Discontinued 07/15/2014 Zoster Immunization Completed 07/01/2022, PSA Discussion Completed 01/29/2023, 02/12, 05/01/2021, Additional history exists Hepatitis B Immunization Aged Out No longer eligible based on patient's age to complete this topic Human Papillomavirus (HPV) Immunization Aged Out No longer eligible based [...] CDT) Prostatic Specific Antigen, Free 0.77 ng/mL [facility] ARCH [id number] F 01/29/2023 6:13 PM CDT [facility] PSA, TOTAL (PROSTATIC SPECIFIC ANTIGEN) 2.67 <4.00 ng/mL [facility] ARCH [id number] B 01/29/2023 6:13 PM CDT [facility] PSA, % FREE 28.8 % 01/29/2023 6:13 PM CDT [facility] Comment: PSA NG/ML FREE PSA % EST [...] Jones APRN, CNP CHEMISTRY ORDERABLES Final Result [facility] [address] [place] [address], from Last 3 Months or Most Recently Relevant to Health Maintenance Insurance [facility] Care Teams Enterprise Application Architect Relationship Specialty Start Date End Date Marilyn Jones APRN, CNP [address] [address] PCP - General Advanced Practice Nurse 12/04/21 Marilyn Jones APRN, CNP [address] [address] Nurse Practitioner Advanced Practice Nurse 05/28/21
--- OUTSIDE RECORDS SUMMARY | 2025-03-02 07:56 | XMS_ITS | Referral Summary ---
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 Gender Identity Not on file Sexual Orientation Not on file Last Filed Vital Signs Vital Sign Reading Time Taken Comments Blood Pressure 145/88 05/13/2024 2:53 PM CDT Pulse 106 05/13/2024 2:53 PM CDT Temperature - - Respiratory Rate - - Oxygen Saturation - - Inhaled Oxygen Concentration - - Weight 96.6 kg (213 lb) 05/13/2024 2:53 PM CDT Height 175.3 cm (5' 9) 05/13/2024 2:53 PM CDT Body Mass Index 31.45 05/13/2024 2:53 PM CDT Plan of Treatment Not on file Insurance [facility] Member Subscriber Plan / Payer (Ef fective 2016-Present) Name:Surjit Flaherty MD Relation to Subscriber:Self Name:Surjit Flaherty MD Payer ID:[id number] (NAIC) Type: [employer] Address[address] [facility] Care Teams Machine Dyer Relationship Specialty Start Date End Date Boby Fuller MD [address] [facility] [address] [place] [address] PCP - General Family Medicine 05/06/24
--- OUTSIDE RECORDS SUMMARY | 2025-03-02 07:56 | XMS_ITS | Clinical Summary ---
Author Organization [facility] Address [address] [place] [address] Phone Care Team Providers Care Grinder Set Up Operator Jig Name Role Phone Doroteo Ruffin MD Primary Care Provider [phone] Allergies Active Allergy Reactions Criticality Noted Date [...] 37.1 C (98.8 F) 08/12/2022 2:04 PM CATALOG LIBRARIAN Respiratory Rate 16 08/30/2015 8:29 AM CATALOG LIBRARIAN Oxygen Saturation 98% 01/12/2023 9:14 AM CDT Inhaled Oxygen Concentration - - Weight 91.2 kg (201 lb) 01/12/2023 9:14 AM CDT Height 172.7 cm (5' 8) 01/12/2023 9:14 AM CDT Body Mass Index 30.56 01/12/2023 9:14 AM CDT Plan of Treatment Health Maintenance Due Date Last Done Comments COLORECTAL SCREENING 2007 Colorectal Cancer Screening 2007 [...] 07/01/2022, 04/07/2022 Medical Devices Implanted Type Area Maintenance Repairer Device Identifier Shelf Expiration Date Model / Serial / Lot Kit Assemly Penile Impl [id number] - [id number] Implanted:Qty: 1 on 08/29/2015 by Malik White MD at [facility] Other N/A: Penis COLOPLAST 02/20/2020 [id number] / / [id number] Description:Coloplast penile components were processed on requisition,[id number]. [place] [employer] [place] 75ml [id number] - [id number] Implanted:Qty: 1 on 08/29/2015 by Malik White MD at [facility] Penile N/A: Penis COLOPLAST 03/25/2020 [id number] / / [id number] Cylinder Set W/Pump Angled Implanted:Qty: 1 on 08/29/2015 by Malik White MD at [facility] Penile N/A: Penis COLOPLAST 12/05/2019 [id number] / / [id number] Insurance [facility] BLUE PREFERRED Advance Directives For more information, please contact: [phone] * Full Code (Latest Code Status on File) Date Activated Date Inactivated Comments 08/29/2015 2:32 PM 08/30/2015 11:23 AM * Full Code Date Activated Date Inactivated Comments 08/29/2015 10:05 AM 08/29/2015 2:32 PM Care Teams Grinder Set Up Operator Jig Relationship Specialty Start Date End Date Doroteo Ruffin MD [address] [address] PCP - General Internal Medicine 03/25/22
--- OUTSIDE RECORDS SUMMARY | 2025-03-02 07:56 | XMS_ITS | Clinical Summary ---
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 Gender Identity Not on file Sexual Orientation [...] 2023-2 5 season) 2024 09/27/2021, 01/09/2021, 08/30/2020 DTaP/Tdap/Td Vaccine (2 - Tdap) 07/15/2024 4 Influenza Vaccine (Season Ended) 2025 05/28/2022, 08/13/2021, 09/09/2018, Additional history exists Zoster Vaccine Completed 07/01/2022, 04/07/2022 [place] [address] [facility] [employer] PRF [place] [facility] [id number] [place] [address] Care Teams Food Service Counter Clerk Relationship Specialty Start Date End Date Boby Fuller MD [address] [facility] [address] [place] [address] PCP - General Family Medicine 05/06/24
[2025-03-02 08:44] LABS: Hemoglobin 12.9 g/dL (14.0-18.0); Mean Corpuscular HGB Conc 34.9 g/dl (32-36); Mean Corpuscular Hemoglobin 31.6 pg (26-34); Mean Corpuscular Volume 90.7 fl (80-100); Mean Platelet Volume 9.4 fl (7.4-10.4); Platelet Count Result 250 k/mm3 (150-375); Red Blood Count 4.08 M/mm3 (4.6-6.20); Red Cell Distribution Width 12.5 % (11.5-14.5); White Blood Count 5.4 K/mm3 (4.5-10.0)
[2025-03-02 09:10] LABS: Alanine Aminotransferase 59 U/L (6-50); Albumin Level 4.3 g/dL (3.5-5.1); Alkaline Phosphatase 47 U/L (38-126); Anion Gap 9 mmol/L (4-12); Aspartate Amino Transferase 73 U/L (17-59); Blood Urea Nitrogen 16 mg/dL (9-20); Calcium 8.8 mg/dL (8.4-10.2); Carbon Dioxide 23 mmol/L (22-30); Chloride 86 mmol/L (98-107); Cholesterol 150 mg/dL (0-200); Estimated Glomerular Filt Rate 54; Glucose 89 mg/dL (65-110); HDL Direct 48 mg/dL; LDL Cholesterol Direct 59 mg/dL; Potassium 3.9 mmol/L (3.4-5.0); Sodium 118 mmol/L (137-145); Total Protein 6.4 g/dL (6.3-8.2); Triglycerides 131 mg/dL (<150)
[2025-03-02 09:20] LABS: Erythrocyte Sedimentation Rate 3 mm/hr (0-20)
[2025-03-02 09:30] LABS: Prostate Specific Antigen 3.4 ng/mL (< OR = 4.0)
[2025-03-02 09:52] LABS: Add Urine Microscopic? NO; Appearance Urine Clear (Clear); Bilirubin Urine Negative (Negative); Blood Urine Negative (Negative); Color Urine Yellow (Yellow); Glucose Urine UA Negative (Negative); Ketones Urine Negative (Negative); Leukocyte Esterase Ur Negative LEU/UL (Negative); Nitrate Urine Negative (Negative); Protein Urine Negative (Negative); Specific Grav Ur 1.004 (1.001-1.035); Urobilinogen Urine 0.2 mg/dL (<2.0); pH Urine 6.5 (5.0-9.0)
== END 2025-03-02 07:51 | disposition home or self-care (01) ==
PROVIDERS: PCP Family Medicine; Visit Provider Physician Assistant
DX: Z00.00 Encounter for general adult medical examination without abnormal findings (principal); I10 Essential (primary) hypertension; M54.9 Dorsalgia, unspecified; R35.1 Nocturia; Z12.5 Encounter for screening for malignant neoplasm of prostate
CPT/HCPCS: 36415; 80053; 80061; 81003; 84153; 84443; 85027; 85652; G0103

== ENCOUNTER 2025-03-03 13:33 | Outpatient (CLI) | payer OTHER, SELFPAY ==
[2025-03-03 14:44] LABS: Alanine Aminotransferase 53 U/L (6-50); Alkaline Phosphatase 36 U/L (38-126); Anion Gap 7 mmol/L (4-12); Aspartate Amino Transferase 62 U/L (17-59); Bilirubin,Total 0.5 mg/dL (0.2-1.3); Blood Urea Nitrogen 8 mg/dL (9-20); Calcium 8.5 mg/dL (8.4-10.2); Carbon Dioxide 26 mmol/L (22-30); Chloride 96 mmol/L (98-107); Estimated Glomerular Filt Rate > 60; Glucose 47 mg/dL (65-110); Potassium 4.4 mmol/L (3.4-5.0); Sodium 129 mmol/L (137-145)
== END 2025-03-03 13:34 | disposition home or self-care (01) ==
LOC: ANHLAB 13:35
PROVIDERS: PCP Family Medicine; Visit Provider Physician Assistant
DX: E87.1 Hypo-osmolality and hyponatremia (principal)
CPT/HCPCS: 36415; 80053

== ENCOUNTER 2025-03-06 13:51 | Outpatient (CLI) | payer OTHER, SELFPAY ==
[2025-03-06 14:41] LABS: Alanine Aminotransferase 49 U/L (6-50); Albumin Level 3.9 g/dL (3.5-5.1); Alkaline Phosphatase 35 U/L (38-126); Anion Gap 6 mmol/L (4-12); Aspartate Amino Transferase 42 U/L (17-59); Bilirubin,Total 0.4 mg/dL (0.2-1.3); Blood Urea Nitrogen 5 mg/dL (9-20); Calcium 8.8 mg/dL (8.4-10.2); Carbon Dioxide 23 mmol/L (22-30); Chloride 106 mmol/L (98-107); Estimated Glomerular Filt Rate > 60; Glucose 114 mg/dL (65-110); Potassium 4.5 mmol/L (3.4-5.0); Sodium 135 mmol/L (137-145); Total Protein 5.9 g/dL (6.3-8.2)
== END 2025-03-06 13:52 | disposition home or self-care (01) ==
PROVIDERS: PCP Family Medicine; Visit Provider Physician Assistant
DX: E87.1 Hypo-osmolality and hyponatremia (principal); B17.9 Acute viral hepatitis, unspecified; R79.89 Other specified abnormal findings of blood chemistry
CPT/HCPCS: 36415; 80053

== ENCOUNTER 2025-03-11 18:00 | Emergency (ER) | payer OTHER, SELFPAY ==
--- NOTE | ~2025-03-11 | CT_ITS ---
CT of the Abdomen and Pelvis: Indication: Abdominal pain Technique: 2.5 mm axial scans were obtained through the abdomen and pelvis following intravenous adm inistration of 100 cc of Omnipaque 350. Dose reduction technique was used on this scan by utilizing a utomated exposure control and iterative reconstruction technique. The dose-length product (DLP) was 3 00.74 mGy-cm. COMPARISON: 06/30/2024 Findings: Scans through the lung bases are unremarkable. The liver, spleen, pancreas, gallbladder, adrenals and kidneys are within normal limits. No evidence of aortic aneurysm. No lymphadenopathy. No bowel obstruction or bowel wall thickening. There is no evidence to suggest acute appendicitis. Images through the pelvis were performed. Urinary bladder unremarkable. No pelvic mass seen. Prostate gland mildly enlarged. No prosthesis present. Impression: No significant abnormalities seen. Reviewed, dictated and finalized at [facility]. Impression: No significant abnormalities seen.
[2025-03-11 18:17] VITALS: BP 92/60; PULSE 63; RESP 18; TEMP 36.7; O2SAT 99
[2025-03-11 22:03] VITALS: BP 116/61; PULSE 65; RESP 12; O2SAT 100
--- NOTE | 2025-03-11 22:13 | ED_ITS ---
HPI - Abdominal Pain General Chief Complaint: Abdominal Pain Stated Complaint: ?diverticulitis Time Seen by Provider: 03/11/25 21:46 Source: patient Mode of arrival: ambulatory Limitations: no limitations History of Present Illness HPI narrative: Patient is a 64 y/o male who presents to the ED with c/o LLQ abd pain. Patient reports he has been having left lower quadrant abdominal pain over the past several days. He has history of previous diverticulitis noted on colonoscopies in the past. 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 He took these for 5 days and reported slight improvement, stop taking the antibiotics. Pain has continued to worsen. Does report decreased appetite an approximate 20 lb weight loss over the past 2 months. Denies nausea, vomiting, fevers, diarrhea, constipation. Last bowel movement this morning. Denies rectal bleeding or melena. Denies urinary complaints. Related Data Home Medications ?Medication ?Instructions ?Recorded ?Confirmed ?Last Taken ?Type lisinopril 40 mg tablet 40 mg PO DAILY 03/04/23 02/21/25 Unknown History acetaminophen 500 mg tablet 750 mg PO Q6H PRN Pain 12/11/23 02/21/25 Unknown History gabapentin 100 mg capsule 100 - 200 mg PO HS 12/11/23 02/21/25 Unknown History (Neurontin) tamsulosin 0.4 mg capsule 0.4 mg PO QHS PRN other 12/11/23 02/21/25 Unknown History topiramate 25 mg tablet 25 mg PO HS 12/11/23 02/21/25 Unknown History Allergies Allergy/AdvReac Type Severity Reaction Status Date / Time No Known Allergies Allergy Verified 03/11/25 18:21 Review of Systems 2 Review of Systems: All systems reviewed & are unremarkable except as noted in HPI. All systems reviewed & are unremarkable except as noted in HPI and below PMFSH Past Medical History Medical History HTN (hypertension) Surgical History Surgical History History of lumbar fusion L4-5 History of fusion of cervical spine History of tibial fracture s/p ORIF R Family History Family History Father Lung cancer Mother Lung cancer Hypertension Social History Social History Smoking status: Never smoker Second hand tobacco smoke exposure: No Alcohol intake: current Alcohol use details: rarely Substance use: never Substance use type: does not use Lack of Transportation: No Lack of Food: Never True Current Housing: I Have Housing Concerned About Future Housing: No Difficulty Paying Gas/Electric Bills: No Difficulty Paying for Meds: No Currently Unemployed: YES Education: Master's Degree or Higher Difficulty w/ Childcare or Family Care: No Living arrangements: with family Occupation/Education: occupation Gender identity (if verbalized by the patient): Male Spiritual care concerns: No Exam 2 Narrative: GENERAL: Well appearing, well-nourished, non-toxic, in no acute distress. HEAD: Normocephalic, atraumatic. RESPIRATORY: Airway patent, respirations nonlabored. Clear to auscultation bilaterally, no rales, rhonchi, wheezing. CARDIOVASCULAR: Regular rate and rhythm. Peripheral pulses intact. ABDOMINAL: Soft, mild tenderness palpation in right lower quadrant, more focal tenderness palpation in left lower quadrant, nondistended. Normoactive BS. MUSCULOSKELETAL: Moves all extremities. No gross deformities. SKIN: Warm, dry, normal color. NEURO: A&O X3. Speech clear. Steady gait. No ataxic movements. PSYCHIATRIC: Appropriate mood and affect. Normal interaction. Course Vital Signs Vital signs: Vital Signs Temperature 98.1 F 03/11/25 18:17 Pulse Rate 63 03/11/25 18:17 Respiratory Rate 18 03/11/25 18:17 Blood Pressure 92/60 L 03/11/25 18:17 Pulse Oximetry 99 03/11/25 18:17 Oxygen Delivery Room Air 03/11/25 18:17 Temperature 98.1 F 03/11/25 18:17 Pulse Rate 52 L 03/12/25 00:15 Respiratory Rate 14 03/12/25 00:15 Blood Pressure 116/61 03/11/25 22:03 Pulse Oximetry 100 03/12/25 00:15 Oxygen Delivery Room Air 03/11/25 22:03 MDM - Abdominal Pain MDM Narrative Medical decision making narrative: Patient presented to ED with several day history of left lower quadrant abdominal pain. Initial blood pressure in triage was slightly low, however this was improved by the time of my evaluation without intervention. Patient is afebrile. Laboratory studies are reassuring. No leukocytosis. Very mild anemia. CMP with sodium of 130. Patient has recently been dealing with hyponatremia. This appears to be up trending from previous records. Bicarb 20. Normal anion gap. Patient given fluids in the ED. Kidney function is stable. Blood glucose 122. Lactic acid within normal range at 1.6. UA is clear no signs of infection. CT scan of abdomen/pelvis showing bilateral incidental renal cyst, penile prosthesis, diverticulosis without evidence of diverticulitis. Discussed lab and imaging findings extensively with patient. Unclear etiology of pain at this time. Discussed possibility of musculoskeletal etiology, given otherwise reassuring workup. Patient did recently treat himself for diverticulitis. May have affectively treated the infection, but still has some peritoneal inflammation remaining. Feel he is safe for discharge home at this time with outpatient follow-up. Will discharge with short course of pain medication. Discussed return precautions. Patient in agreement with plan. Feels comfortable going home. Discharged in stable condition. Medical Records Attestation: I reviewed the patient's medical records. Lab Data Attestation: I reviewed the patient's lab results. 03/11/25 22:22 03/11/25 22:22 Labs: Lab Results 03/11/25 03/11/25 Range/Units 22:22 22:34 WBC 6.3 (4.5-10.0) K/mm3 RBC 3.71 L (4.6-6.20) M/mm3 Hgb 11.8 L (14.0-18.0) g/dL Hct 35.5 L (42.0-52.0) % MCV 95.7 (80-100) fl MCH 31.8 (26-34) pg MCHC 33.2 (32-36) g/dl RDW 13.2 (11.5-14.5) % Plt Count 226 (150-375) k/mm3 MPV 8.7 (7.4-10.4) fl Immature Gran % (Auto) 0.5 (0-0.5) % Neut % (Auto) 46.5 (45.5-73.1) % Lymph % (Auto) 41.7 (18.3-44.2) % [place] % (Auto) 8.1 (2.6-8.5) % Eos % (Auto) 2.7 (0-4.4) % Baso % (Auto) 0.5 (0.2-1.2) % Lymph # (Auto) 2.64 (0.9-3.2) K/mm3 [place] # (Auto) 0.5 (0.1-0.6) K/mm3 Eos # (Auto) 0.2 (0-0.3) K/mm3 Baso # (Auto) 0.0 (0.0-0.1) K/mm3 Abs Immat Gran (auto) 0.03 (0.00-0.031) K/mm3 Absolute Neuts (auto) 3.0 (1.3-6.7) K/mm3 Absolute Nucleated RBC 0.000 (0.0-0.012) K/mm3 Nucleated RBC % 0.0 (0.0-0.2) % Sodium 130 L (137-145) mmol/L Potassium 3.8 (3.4-5.0) mmol/L Chloride 100 (98-107) mmol/L Carbon Dioxide 20 L (22-30) mmol/L Anion Gap 10 (4-12) mmol/L BUN 13 D (9-20) mg/dL Creatinine 1.07 (0.7-1.3) mg/dL Estim Creat Clear Calc 63 ml/min Estimated GFR > 60 (59 - ) Glucose 122 H (65-110) mg/dL Lactic Acid 1.6 (0.7-2.0) mmol/L Calcium 9.1 (8.4-10.2) mg/dL Total Bilirubin 0.3 (0.2-1.3) mg/dL AST 47 (17-59) U/L ALT 75 H (6-50) U/L Alkaline Phosphatase 27 L (38-126) U/L Total Protein 6.4 (6.3-8.2) g/dL Albumin 4.2 (3.5-5.1) g/dL Lipase 155 (23-300) U/L Urine Color Yellow (Yellow) Urine Appearance Clear (Clear) Urine pH 5.5 (5.0-9.0) Ur Specific [place] 1.011 (1.001-1.035) Urine Protein Negative (Negative) mg/dL Urine Glucose (UA) Negative (Negative) mg/dL Urine Ketones Negative (Negative) mg/dL Ur Blood (Man) Negative (Negative) Urine Nitrate Negative (Negative) Urine Bilirubin Negative (Negative) Urine Urobilinogen 0.2 (<2.0) mg/dL Leukocyte Esterase Rfl Negative (Negative) ARSENIO/UL Imaging Data Attestation: I personally reviewed and interpreted this imaging study as follows: Radiologist's impression: STAT RAD CT abd/pelvis: Impression: 3.9 cm right renal cyst. Penile prosthesis present. This is unchanged in appearance since 06/20/2024. 1.7 cm left renal cyst. Normal appearing appendix. Diverticulosis without evidence of diverticulitis. Discharge Plan Discharge Clinical Impression: Left lower quadrant abdominal pain, Bilateral renal cysts Patient Disposition: Home Condition: Stable Instructions: Antibiotic Form, Diverticulitis (ED), Diverticulitis Diet (ED), Abdominal Pain (ED) Additional Instructions: Your workup here was reassuring. Continue Tylenol, ibuprofen as needed for pain. [place] as needed for more severe pain. Follow-up with your primary care doctor for further evaluation. Return to the ED for worsening or severe pain, unable to keep down food or drink, rectal bleeding, dark black stools, persistent fevers, or any other symptoms of concern. Patient Language: Belarusian Prescriptions: New hydrocodone-acetaminophen 5-325 mg tablet 1 tablet PO Q6H PRN (Reason: pain) Qty: 10 0RF No Action lisinopril 40 mg tablet 40 mg PO DAILY alprazolam [Xanax] 0.5 mg tablet 0.5 mg PO DAILY PRN (Reason: anxiety) Qty: 14 0RF zolpidem [Ambien] 10 mg tablet 10 mg PO QHS PRN (Reason: insomnia) Qty: 30 0RF topiramate 25 mg tablet 25 mg PO HS acetaminophen 500 mg Tablet 750 mg PO Q6H PRN (Reason: Pain) tamsulosin 0.4 mg capsule 0.4 mg PO QHS PRN (Reason: other) gabapentin [Neurontin] 100 mg capsule 100 - 200 mg PO HS Follow-up/Referrals: Boby Fuller MD [Primary Care Provider] - Time of Disposition: 01:00
--- NOTE | 2025-03-11 22:25 | PC.NURSE ---
Pt states he can not provide a urine sample at this time , but was provided a urinal and will call when he has provided one.
[2025-03-11 22:29] LABS: Basophils Percent Auto 0.5 % (0.2-1.2); Eosinophils Absolute Auto 0.2 K/mm3 (0-0.3); Eosinophils Percent Auto 2.7 % (0-4.4); Hematocrit 35.5 % (42.0-52.0); Hemoglobin 11.8 g/dL (14.0-18.0); Immature Granulocyte Absolute 0.03 K/mm3 (0.00-0.031); Immature Granulocyte Percent A 0.5 % (0-0.5); Lymphocytes Absolute Auto 2.64 K/mm3 (0.9-3.2); Lymphocytes Percent Auto 41.7 % (18.3-44.2); Mean Corpuscular HGB Conc 33.2 g/dl (32-36); Mean Corpuscular Hemoglobin 31.8 pg (26-34); Mean Corpuscular Volume 95.7 fl (80-100); Mean Platelet Volume 8.7 fl (7.4-10.4); Monocytes Absolute Auto 0.5 K/mm3 (0.1-0.6); Monocytes Percent Auto 8.1 % (2.6-8.5); Neutrophils Percent Auto 46.5 % (45.5-73.1); Platelet Count Result 226 k/mm3 (150-375); Red Blood Count 3.71 M/mm3 (4.6-6.20); Red Cell Distribution Width 13.2 % (11.5-14.5); White Blood Count 6.3 K/mm3 (4.5-10.0)
[2025-03-11 22:38] LABS: Lactic Acid Reflex 1.6 mmol/L (0.7-2.0)
[2025-03-11 22:39] LABS: Alanine Aminotransferase 75 U/L (6-50); Albumin Level 4.2 g/dL (3.5-5.1); Alkaline Phosphatase 27 U/L (38-126); Anion Gap 10 mmol/L (4-12); Aspartate Amino Transferase 47 U/L (17-59); Bilirubin,Total 0.3 mg/dL (0.2-1.3); Blood Urea Nitrogen 13 mg/dL (9-20); Calcium 9.1 mg/dL (8.4-10.2); Carbon Dioxide 20 mmol/L (22-30); Chloride 100 mmol/L (98-107); Estimated CRCL calculation 63 ml/min; Estimated Glomerular Filt Rate > 60; Glucose 122 mg/dL (65-110); Lipase 155 U/L (23-300); Potassium 3.8 mmol/L (3.4-5.0); Sodium 130 mmol/L (137-145); Total Protein 6.4 g/dL (6.3-8.2)
[2025-03-11 22:54] LABS: Add Urine Microscopic? NO; Appearance Urine Clear (Clear); Bilirubin Urine Negative (Negative); Blood Urine Negative (Negative); Color Urine Yellow (Yellow); Glucose Urine UA Negative (Negative); Ketones Urine Negative (Negative); Leukocyte Esterase Ur Negative LEU/UL (Negative); Nitrate Urine Negative (Negative); Protein Urine Negative (Negative); Specific Grav Ur 1.011 (1.001-1.035); Urobilinogen Urine 0.2 mg/dL (<2.0); pH Urine 5.5 (5.0-9.0)
[2025-03-11] MEDS: HYDROcodone/acetaminophen (*CRX) 5-325 MG TABLET 1 TAB PO (23:24)
[2025-03-11] MEDS: SODIUM CHLORIDE 0.9% IV 1,000 ML 999 ML IV CONT (23:26)
[2025-03-11 23:48] VITALS: PULSE 57; RESP 15; O2SAT 100
[2025-03-12 00:12] VITALS: PULSE 52; RESP 14; O2SAT 100
[2025-03-12 00:15] VITALS: PULSE 52; RESP 14; O2SAT 100
[2025-03-12 01:26] VITALS: BP 116/55; PULSE 70; RESP 20; TEMP 36.6; O2SAT 100
== END 2025-03-12 01:23 | disposition home or self-care (01) ==
PROVIDERS: Student in an Organized Health Care Education/Training Program; Emergency Provider Physician Assistant; PCP Family Medicine
DX: R10.32 Left lower quadrant pain (principal); N28.1 Cyst of kidney, acquired; I10 Essential (primary) hypertension; Z98.1 Arthrodesis status
CPT/HCPCS: 36415; 74177; 80053; 81003; 83605; 83690; 85025; 96360; 99284; A9270; J7030; Q9967

== ENCOUNTER 2025-05-01 08:47 | Outpatient (CLI) | payer OTHER, SELFPAY ==
--- OUTSIDE RECORDS SUMMARY | 2025-05-01 08:59 | XMS_ITS | Clinical Summary ---
Author Organization [facility] Address [address] [place] [address] Care Team Providers Care Ring Maker Name Role Phone Feng Forrester MD Primary Care Provider [phone] Source Comments [facility],non-owned Affiliates and Associated Physician Practices is amultiple site organization consisting of ambulatory clinics and hospital sitesin [place], [place], [place] and [place]. This disclosure is being madepursuant to the Care Everywhere program and may not contain all information available regarding this patient. 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
--- OUTSIDE RECORDS SUMMARY | 2025-05-01 08:59 | XMS_ITS | Continuity of Care Document ---
Author Organization [facility] Address [address] [place] [address] [address] [place] [address] Phone Care Team Providers Care Emulsion Coater Name Role Phone Analisa Lagos Unavailable Unavailable Advance Directives Directive Yes / No Effective Date File Name No Information Encounters Encounter Description Practice Location Reason(s) For Visit Diagnoses Date Provider Providers Copied on Encounter [facility], [address], [place], [place], [id number], [place] tel:[phone] [facility] No Information 0 7-200 2 Yolis Hauser. [address] , [address], [place], [address], [place]. tel:[phone] Family History Family Member Type Diagnosis Age At Onset No Information Payers Payer name Insurance type Covered constitution party ID Authoriza tion(s) [facility] Out Of State [id number] Social History Type Description Quantity Date Captured [...]
--- OUTSIDE RECORDS SUMMARY | 2025-05-01 08:59 | XMS_ITS | Clinical Summary ---
Author Organization [facility] Address [address] [address] Phone Care Team Providers Care Gunstock Spray Unit Feeder Name Role Phone Marilyn Jones APRN, CNP Unavailable [phone] Marilyn Jones APRN, CNP Primary Care Provid [...] Lnp-s, Pf, 3 0 Mcg/0.3 Ml Dose (ImmunotEGG) 01/09/2021,08/30/2020 DTAP VACCINE 07/15/2014 Influenza Vaccine greater [...] season) 2024 09/27/2021, 01/09/2021, 08/30/2020 Influenza Immunization (#1) 05/15/202505/15, 08/13/2021, 09/09/2018, Additional history exists DTaP/Tdap/Td Immunization [...] CDT) Prostatic Specific Antigen, Free 0.77 ng/mL [facility] [id number] 01/29/2023 6:13 PM CDT [facility] PSA, TOTAL (PROSTATIC SPECIFIC ANTIGEN) 2.67 <4.00 ng/mL [facility] [id number] B 01/29/2023 6:13 PM CDT [facility] PSA, % FREE 28.8 % 01/29/2023 6:13 PM CDT [facility] Comment: PSA NG/ML FREE PSA % [...] Jones APRN, CNP CHEMISTRY ORDERABLES Final Result [facility] [address] from Last 3 Months or Most Recently Relevant to [place] [address] [facility] Care Teams Gunstock Spray Unit Feeder Relationship Specialty Start Date End Date Marilyn Jones APRN, CNP [address] [address] PCP - General Advanced Practice Nurse 12/04/21 Marilyn Jones APRN, CNP [address] [address] Nurse Practitioner Advanced Practice Nurse 05/28/21
--- OUTSIDE RECORDS SUMMARY | 2025-05-01 08:59 | XMS_ITS | Clinical Summary ---
Author Organization [facility] Address [address] [place] [address] Phone Care Team Providers Care Coil Strapper Name Role Phone Doroteo Ruffin MD Primary Care Provider [phone] Allergies Active Allergy Reactions Criticality Noted Date [...] 37.1 C (98.8 F) 08/12/2022 2:04 PM SCRUM PROJECT MANAGER Respiratory Rate 16 08/30/2015 8:29 AM SCRUM PROJECT MANAGER Oxygen Saturation 98% 01/12/2023 9:14 AM [...] - Risk 60-74 years 1-dose series) 2022 DTAP/TDAP/TD VACCINES (2 - Tdap) 07/15/2024 07/15/20 14 INFLUENZA VACCINE (#1) 2025 2, 08/13/2021, 09/09/2018, Additional history exists ZOSTER VACCINE Completed 07/01/2022, 04/07/2022 Medical Devices Implanted Type Area Special Programs Director Device Identifier Shelf Expiration Date Model / Serial / Lot Kit Assemly Penile Impl [id number] - [id number] Implanted:Qty: 1 on 08/29/2015 by Malik White MD at [facility] Other N/A: Penis COLOPLAST 02/20/2020 [id number] / / [id number] Description:Coloplast penile components were processed on requisition,[id number]. [place] 75ml [id number] - [id number] Implanted:Qty: 1 on 08/29/2015 by Malik White MD at [facility] Penile N/A: Penis COLOPLAST 03/25/2020 [id number] / / [id number] Cylinder Set W/Pump Angled Implanted:Qty: 1 on 08/29/2015 by Malik White MD at [facility] Penile N/A: Penis COLOPLAST 12/05/2019 [id number] / / [id number] Insurance [facility] BLUE PREFERRED Advance Directives For more information, please contact: [phone] * Full Code (Latest Code Status on File) Date Activated Date Inactivated Comments 08/29/2015 2:32 PM 08/30/2015 11:23 AM * Full Code Date Activated Date Inactivated Comments 08/29/2015 10:05 AM 08/29/2015 2:32 PM Care Teams Coil Strapper Relationship Specialty Start Date End Date Doroteo Ruffin MD #[address] [address] PCP - General Internal Medicine 03/25/22
--- OUTSIDE RECORDS SUMMARY | 2025-05-01 08:59 | XMS_ITS | Clinical Summary ---
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
--- OUTSIDE RECORDS SUMMARY | 2025-05-01 09:01 | XMS_ITS | Continuity of Care Document ---
Author Organization [facility] Address [address] [place] [address] [address] [place] [address] Phone Care Team Providers Care Wet Sander Name Role Phone Analisa Lagos Unavailable Unavailable Advance Directives Directive Yes / No Effective Date File Name No Information Encounters Encounter Description Practice Location Reason(s) For Visit Diagnoses Date Provider Providers Copied on Encounter [facility], [address], [place], [place], [id number], [place] tel:[phone] [facility] No Information 0 7-200 2 Yolis Hauser. [address] , [address], [place], [address], [place]. tel:[phone] Family History Family Member Type Diagnosis Age At Onset No Information Payers Payer name Insurance type Covered republican ID Authoriza tion(s) [facility] Out Of State [id number] Social History Type Description Quantity Date Captured [...]
--- OUTSIDE RECORDS SUMMARY | 2025-05-01 09:02 | XMS_ITS | Continuity of Care Document ---
Author Organization [facility] Address [address] [place] [address] [address] [place] [address] Phone Care Team Providers Care College Associate Name Role Phone Analisa Lagos Unavailable Unavailable Advance Directives Directive Yes / No Effective Date File Name No Information Encounters Encounter Description Practice Location Reason(s) For Visit Diagnoses Date Provider Providers Copied on Encounter [facility], [address], [place], [place], [address], [place] tel:[phone] [facility] No Information 0 7-200 2 Yolis Hauser. [address] , [address], [place], [address], [place]. tel:[phone] Family History Family Member Type Diagnosis Age At Onset No Information Payers Payer name Insurance type Covered democrat ID Authoriza tion(s) [facility] Out Of State [id number] Social History Type Description Quantity Date Captured [...]
[2025-05-01 09:31] LABS: Hematocrit 40.7 % (42.0-52.0); Hemoglobin 13.4 g/dL (14.0-18.0); Immature Granulocyte Percent A 0.4 % (0-0.5); Lymphocytes Absolute Auto 2.49 K/mm3 (0.9-3.2); Mean Corpuscular HGB Conc 32.9 g/dl (32-36); Mean Corpuscular Hemoglobin 31.9 pg (26-34); Mean Corpuscular Volume 96.9 fl (80-100); Nucleated Red Blood Cells Absolute Auto 0.000 K/mm3 (0.0-0.012); Nucleated Red Blood Cells Perc 0.0 % (0.0-0.2); Platelet Count Result 209 k/mm3 (150-375); Red Blood Count 4.20 M/mm3 (4.6-6.20); White Blood Count 8.0 K/mm3 (4.5-10.0)
[2025-05-01 09:59] LABS: Alanine Aminotransferase 91 U/L (6-50); Albumin Level 4.2 g/dL (3.5-5.1); Alkaline Phosphatase 46 U/L (38-126); Anion Gap 9 mmol/L (4-12); Aspartate Amino Transferase 46 U/L (17-59); Bilirubin,Total 0.4 mg/dL (0.2-1.3); Blood Urea Nitrogen 15 mg/dL (9-20); Calcium 9.0 mg/dL (8.4-10.2); Carbon Dioxide 27 mmol/L (22-30); Chloride 102 mmol/L (98-107); Estimated Glomerular Filt Rate > 60; Glucose 80 mg/dL (65-110); Potassium 3.8 mmol/L (3.4-5.0); Sodium 138 mmol/L (137-145); Total Protein 6.5 g/dL (6.3-8.2)
[2025-05-02 07:08] LABS: PSA, Free 0.54 ng/mL
== END 2025-05-01 08:48 | disposition home or self-care (01) ==
PROVIDERS: Physician Assistant Medical; PCP Family Medicine; Referring Provider Physician Assistant
DX: R35.1 Nocturia (principal); D64.9 Anemia, unspecified; E87.1 Hypo-osmolality and hyponatremia; N17.9 Acute kidney failure, unspecified; R79.89 Other specified abnormal findings of blood chemistry
CPT/HCPCS: 36415; 80053; 84153; 84154; 85025

== ENCOUNTER 2025-05-11 12:14 | Outpatient (CLI) | payer OTHER, SELFPAY ==
--- OUTSIDE RECORDS SUMMARY | 2002-01-18 08:45 | XMS_ITS | Continuity of Care Document ---
Author Organization [facility] Address [address] [place] [address] [address] [place] [address] Phone Care Team Providers Care Financial Institution Branch Manager Name Role Phone Analisa Lagos Unavailable Unavailable Advance Directives Directive Yes / No Effective Date File Name No Information Encounters Encounter Description Practice Location Reason(s) For Visit Diagnoses Date Provider Providers Copied on Encounter [facility], [address], [place], [place], [id number], [place] tel:[phone] SEC [facility] No Information 0 7-200 2 Yolis Hauser. [address] , [address], [place], [address], [place]. tel:[phone] Family History Family Member Type Diagnosis Age At Onset No Information Payers Payer name Insurance type Covered alliance party ID Authoriza tion(s) [facility] Out Of State [id number] Social History Type Description Quantity Date Captured [...]
--- OUTSIDE RECORDS SUMMARY | 2025-05-11 12:16 | XMS_ITS | Clinical Summary ---
Author Organization [facility] Address [address] [address] Phone Care Team Providers Care Historiography Professor Name Role Phone Marilyn Jones APRN, CNP Unavailable [phone] Marilyn Jones APRN, CNP Primary Care Provid [...] Lnp-s, Pf, 3 0 Mcg/0.3 Ml Dose ([employer]) 01/09/2021,08/30/2020 DTAP VACCINE 07/15/2014 Influenza Vaccine greater [...] CDT) Prostatic Specific Antigen, Free 0.77 ng/mL [facility] ARCH [id number] F 01/29/2023 6:13 PM CDT [facility] PSA, TOTAL (PROSTATIC SPECIFIC ANTIGEN) 2.67 <4.00 ng/mL [facility] ARCH [id number] B 01/29/2023 6:13 PM CDT [facility] PSA, % FREE 28.8 % 01/29/2023 6:13 PM CDT [facility] Comment: PSA NG/ML FREE PSA [...] Jones APRN, CNP CHEMISTRY ORDERABLES Final Result [facility] [address] from Last 3 Months or Most Recently Relevant to [place] [address] [facility] Care Teams Historiography Professor Relationship Specialty Start Date End Date Marilyn Jones APRN, CNP #[address] [address] PCP - General Advanced Practice Nurse 12/04/21 Marilyn Jones APRN, CNP #[address] [address] Nurse Practitioner Advanced Practice Nurse 05/28/21
--- OUTSIDE RECORDS SUMMARY | 2025-05-11 12:16 | XMS_ITS | Clinical Summary ---
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 Gender Identity Not on file Sexual Orientation [...] exists Zoster Vaccine Completed 07/01/2022, 04/07/2022 [place] [address] [facility] PREFERRED BL CHOICE PRF [place] [facility] HMO/PPO Address: [address] [address] [place] [phone] [place] [address] [facility] HMO/PPO Address: [address] [address] [place] [address] Care Teams Investment Director Relationship Specialty Start Date End Date Boby Fuller MD [address] [facility] [address] [place] [address] PCP - General Family Medicine 05/06/24
--- OUTSIDE RECORDS SUMMARY | 2025-05-11 12:16 | XMS_ITS | Clinical Summary ---
Author Organization [facility] Address [address] [facility] [place] [address] Care Team Providers Care Risk Management Intern Name Role Phone Feng Forrester MD Primary Care Provider [phone] Source Comments [email or web address],non-owned Affiliates and Associated Physician Practices is amultiple site organization consisting of ambulatory clinics and hospital sitesin [place], [place], [place] and [place]. This disclosure is being madepursuant to the Care Everywhere program and may not contain all information available regarding this patient. 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
--- OUTSIDE RECORDS SUMMARY | 2025-05-11 12:16 | XMS_ITS | Clinical Summary ---
Author Organization [facility] Address [address] [place] [phone] Phone Care Team Providers Care Box Stapler Name Role Phone Doroteo Ruffin MD Primary Care Provider [phone] Allergies Active Allergy Reactions Criticality Noted Date [...] 37.1 C (98.8 F) 08/12/2022 2:04 PM MERCERIZING RANGE CONTROLLER Respiratory Rate 16 08/30/2015 8:29 AM MERCERIZING RANGE CONTROLLER Oxygen Saturation 98% 01/12/2023 9:14 AM CDT [...] 07/01/2022, 04/07/2022 Medical Devices Implanted Type Area Odd Jobs Day Worker Device Identifier Shelf Expiration Date Model / Serial / Lot Kit Assemly Penile Impl [id number] - [id number] Implanted:Qty: 1 on 08/29/2015 by Malik White MD at [facility] Other N/A: Penis COLOPLAST 02/20/2020 [id number] / / [id number] Description:Coloplast penile components were processed on requisition,[id number]. [place] [employer] [place] 75ml [id number] - [id number] Implanted:Qty: 1 on 08/29/2015 by Malik White MD at [facility] Penile N/A: Penis COLOPLAST 03/25/2020 [id number] / / [id number] Cylinder Set W/Pump Angled Implanted:Qty: 1 on 08/29/2015 by Malik White MD at [facility] Penile N/A: Penis COLOPLAST 12/05/2019 [id number] / / [id number] Insurance [facility] BLUE PREFERRED Advance Directives For more information, please contact: [phone] * Full Code (Latest Code Status on File) Date Activated Date Inactivated Comments 08/29/2015 2:32 PM 08/30/2015 11:23 AM * Full Code Date Activated Date Inactivated Comments 08/29/2015 10:05 AM 08/29/2015 2:32 PM Care Teams Box Stapler Relationship Specialty Start Date End Date Doroteo Ruffin MD #[address] [address] PCP - General Internal Medicine 03/25/22
[2025-05-11 13:52] LABS: CRP < 0.5 mg/dL (<1.0)
[2025-05-11 13:58] LABS: Immunoglobulin G 586 mg/dL (700-1600); Immunoglobulin M 32 mg/dL (40-230)
[2025-05-11 16:55] LABS: Immunoglobulin A < 40 mg/dL (70-400)
[2025-06-02 15:09] LABS: Clinical Relevance Notes (.); IgA Anti-Endomysial Ab <2.5 (.); IgG Anti-Endomysial Ab <2.5 (.)
== END 2025-05-11 12:15 | disposition home or self-care (01) ==
LOC: ANHLAB 12:15
PROVIDERS: PCP Family Medicine; Visit Provider Physician Assistant
DX: L29.9 Pruritus, unspecified (principal); R21 Rash and other nonspecific skin eruption; R53.83 Other fatigue; R19.7 Diarrhea, unspecified
CPT/HCPCS: 36415; 82232; 82784; 83615; 85652; 86003; 86140; 86231; 86256

== ENCOUNTER 2025-06-01 08:46 | Outpatient (CLI) | payer OTHER, SELFPAY ==
--- NOTE | ~2025-06-01 | XR_ITS ---
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 Comparison: None Findings: The vertebral heights are intact. No fracture or subluxation. The disc heights are intact. Soft tissues unremarkable Impression: No acute abnormality. Reviewed, dictated and finalized at location A. Impression: No acute abnormality.
--- NOTE | ~2025-06-01 | XR_ITS ---
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 Comparison: None Findings: Moderate loss of vertebral height throughout, no fracture identified, no subluxation with flexion-extension. Moderate loss of disc height throughout. Soft tissues unremarkable Impression: No acute abnormality. Reviewed, dictated and finalized at location A. Impression: No acute abnormality.
== END 2025-06-01 08:47 | disposition home or self-care (01) ==
PROVIDERS: PCP Family Medicine; Visit Provider Physician Assistant Medical
DX: M47.26 Other spondylosis with radiculopathy, lumbar region (principal); M48.062 Spinal stenosis, lumbar region with neurogenic claudication; M85.852 Other specified disorders of bone density and structure, left thigh
CPT/HCPCS: 72072; 72114

== ENCOUNTER 2025-06-05 11:31 | Outpatient (CLI) | payer OTHER, SELFPAY ==
--- OUTSIDE RECORDS SUMMARY | 2002-01-18 08:45 | XMS_ITS | Continuity of Care Document ---
Author Organization [facility] Address [address] [place] [address] [address] [place] [address] Phone Care Team Providers Care Commercial Specialist Name Role Phone Analisa Lagos Unavailable Unavailable Advance Directives Directive Yes / No Effective Date File Name No Information Encounters Encounter Description Practice Location Reason(s) For Visit Diagnoses Date Provider Providers Copied on Encounter [facility], [address], [place], [place], [id number], [place] tel:[phone] SEC [facility] No Information 0 7-200 2 Yolis Hauser. [address] , [address], [place], [address], [place]. tel:[phone] Family History Family Member Type Diagnosis Age At Onset No Information Payers Payer name Insurance type Covered constitution party ID Authoriza tion(s) [facility] Out Of State [id number] Social History Type Description Quantity Date Captured [...]
--- NOTE | ~2025-06-05 | DEXA_ITS ---
Bone Density Report Name: KONSTANTIN HAGEN Age: 64 Sex: Male Ethnicity: White Date of : 1960 Indication: history of glucocorticoids; prior fracture; Referring Provider: BIANCA SHEETS Study: Bone densitometry was performed. Exam Date: June 05, 2025 Accession number: [id number] Bone Density: Region BMD T-score Z-score Classification AP Spine(L1-L4) 1.113 0.2 0.9 Normal Femoral Neck (Left) 0.767 -1.2 -0.2 Osteopenia Total Hip (Left) 0.992 -0.3 0.2 Normal Femoral Neck (Right) 0.869 -0.4 0.5 Normal Total Hip (Right) 1.034 0.0 0.5 Normal Femoral Neck Mean 0.818 -0.8 0.2 Normal Total Hip Mean 1.013 -0.1 0.3 Normal World Health Organization criteria for BMD impression classify patients as: Normal (T-score at or above -1.0), Osteopenia (T-score between -1.0 and -2.5), or Osteoporosis (T-score at or below -2.5). 10-year Fracture Risk(1): Major Osteoporotic Fracture 14% Hip Fracture 1.7% Reported Risk Factors: [place] (), Neck BMD=0.767, BMI=28.4, previous fracture, glucocorticoids (1) FRAX(R) Version 3.08. Fracture probability calculated for an untreated patient. Fracture probability may be lower if the patient has received treatment. Clinical Information Provided by Patient: Has had a low trauma fracture Has taken Glucocorticoids Has used the following medications: Toparamate Has the following medical conditions: Anticonvulsants Patient maximum height was 69 Does not regularly consume dairy products Drinks caffeinated beverages Impression: The patient has low bone mass, based on the Left Femoral Neck T-score. The patient has risk factors, including: previous fracture, history of glucocorticoid therapy. Discussion: BONE DENSITY IS LOW AT ONE OR MORE SKELETAL SITES. This patient's lowest T-score is low at one or more skeletal sites. It meets the World Health Organization's (WHO) criteria for ?low bone mass? (T-score between -1.0 and -2.5). The patient's 10-year risk of fracture as calculated by FRAX is less than the threshold where pharmacological therapy is recommended by the National Osteoporosis Foundation (NOF). However, all treatment decisions require clinical judgment and consideration of individual patient factors, including patient preferences, comorbidities, previous drug use, risk factors not captured in the FRAX model (e.g., frailty, falls, vitamin D deficiency, increased bone turnover, interval significant decline in bone density) and possible under or overestimation of fracture risk by FRAX. The patient should follow a healthful lifestyle (good nutrition with adequate calcium and vitamin D, and appropriate weight-bearing exercise). Follow-Up: Consider repeating this study in 2 to 3 years to reassess this patient's status, or sooner if there is some new clinical indication. Reported by: DIAMOND on 06/05/2025 12:07:00 PM. Reviewed, dictated and finalized at location A.
--- OUTSIDE RECORDS SUMMARY | 2025-06-05 12:39 | XMS_ITS | Clinical Summary ---
Author Organization [facility] Address [address] [place] [address] Care Team Providers Care Motor Driver Name Role Phone Feng Forrester MD Primary Care Provider [phone] Source Comments [facility],non-owned Affiliates and Associated Physician Practices is amultiple site organization consisting of ambulatory clinics and hospital sitesin [place], [place], [place] and [place]. This disclosure is being madepursuant to the Care Everywhere program and may not contain all information available regarding this patient. 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
--- OUTSIDE RECORDS SUMMARY | 2025-06-05 12:39 | XMS_ITS | Clinical Summary ---
Author Organization [facility] Address [address] [place] [phone] Phone Care Team Providers Care Benzene Operator Name Role Phone Doroteo Ruffin MD Primary Care Provider [phone] [phone] Allergies Active Allergy Reactions Criticality Noted Date [...] 37.1 C (98.8 F) 08/12/2022 2:04 PM WINDSHIELD INSTALLER Respiratory Rate 16 08/30/2015 8:29 AM WINDSHIELD INSTALLER Oxygen Saturation 98% 01/12/2023 9:14 AM CDT [...] 07/01/2022, 04/07/2022 Medical Devices Implanted Type Area Public Administration Teacher Device Identifier Shelf Expiration Date Model / Serial / Lot Kit Assemly Penile Impl [id number] - [id number] Implanted:Qty: 1 on 08/29/2015 by Malik White MD at [facility] Other N/A: Penis COLOPLAST 02/20/2020 [id number] / / [id number] Description:Coloplast penile components were processed on requisition,[id number]. [place] [employer] [place] 75ml [id number] - [id number] Implanted:Qty: 1 on 08/29/2015 by Malik White MD at [facility] Penile N/A: Penis COLOPLAST 03/25/2020 [id number] / / [id number] Cylinder Set W/Pump Angled Implanted:Qty: 1 on 08/29/2015 by Malik White MD at [facility] Penile N/A: Penis COLOPLAST 12/05/2019 [id number] / / [id number] Insurance [facility] BLUE PREFERRED Advance Directives For more information, please contact: [phone] * Full Code (Latest Code Status on File) Date Activated Date Inactivated Comments 08/29/2015 2:32 PM 08/30/2015 11:23 AM * Full Code Date Activated Date Inactivated Comments 08/29/2015 10:05 AM 08/29/2015 2:32 PM Care Teams Benzene Operator Relationship Specialty Start Date End Date Doroteo Ruffin MD #[address] [address] PCP - General Internal Medicine 03/25/22
--- OUTSIDE RECORDS SUMMARY | 2025-06-05 12:39 | XMS_ITS | Clinical Summary ---
Author Organization [facility] Address [address] [address] Phone Care Team Providers Care Marketing Technology Coordinator Name Role Phone Marilyn Jones APRN, CNP Unavailable [phone]- [phone] Marilyn Jones APRN, CNP Primary Care Provid [...] Lnp-s, Pf, 3 0 Mcg/0.3 Ml Dose (Comfy) 01/09/2021,08/30/2020 DTAP VACCINE 07/15/2014 Influenza Vaccine greater [...] Colorectal Cancer Screening 02/26/2024 Influenza Immunization (#1) 05/15/202505/15, 08/13/2021, 09/09/2018, Additional history exists SARS-COV-2 Immunization (2024- season) 2025 09/27/2021, 01/09/2021, 08/30/2020 DTaP/Tdap/Td Immunization Discontinued 07/15/2014 Zoster Immunization Completed [...] CDT) Prostatic Specific Antigen, Free 0.77 ng/mL [facility] [id number] F 01/29/2023 6:13 PM CDT [facility] PSA, TOTAL (PROSTATIC SPECIFIC ANTIGEN) 2.67 <4.00 ng/mL [facility] [id number] B 01/29/2023 6:13 PM CDT [facility] PSA, % FREE 28.8 % 01/29/2023 6:13 PM CDT [facility] Comment: PSA NG/ML FREE PSA [...] Jones APRN, CNP CHEMISTRY ORDERABLES Final Result [facility] [address] from Last 3 Months or Most Recently Relevant to [place] [address] [facility] Care Teams Marketing Technology Coordinator Relationship Specialty Start Date End Date Marilyn Jones APRN, CNP #[address] [address] PCP - General Advanced Practice Nurse 12/04/21 Marilyn Jones APRN, CNP #[address] [address] Nurse Practitioner Advanced Practice Nurse 05/28/21
--- OUTSIDE RECORDS SUMMARY | 2025-06-05 12:39 | XMS_ITS | Clinical Summary ---
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 [address] [place] [address] BL CHOICE [place]F [place] [facility] HMO/PPO Address: [address] [address] [place] [id number] [place] [address] [facility] HMO/PPO Address: [address] [address] [place] [address] Care Teams Jack Tamp Operator Relationship Specialty Start Date End Date Boby Fuller MD [address] [facility] [address] [place] [address] PCP - General Family Medicine 05/06/24
== END 2025-06-05 11:32 | disposition home or self-care (01) ==
LOC: CHSIMG 11:32
PROVIDERS: PCP Family Medicine
DX: Z79.52 Long term (current) use of systemic steroids (principal); M85.88 Other specified disorders of bone density and structure, other site
CPT/HCPCS: 77080

== ENCOUNTER 2025-06-26 13:14 | Outpatient (CLI) | payer OTHER, SELFPAY ==
--- OUTSIDE RECORDS SUMMARY | 2002-01-18 08:45 | XMS_ITS | Continuity of Care Document ---
Author Organization [facility] Address [address] [place] [address] [address] [place] [address] Phone Care Team Providers Care Hadoop Software Engineer Name Role Phone Analisa Lagos Unavailable Unavailable Advance Directives Directive Yes / No Effective Date File Name No Information Encounters Encounter Description Practice Location Reason(s) For Visit Diagnoses Date Provider Providers Copied on Encounter [facility], [address], [place], [place], [id number], [place] tel:[phone] SEC [facility] No Information 0 7-200 2 Yolis Hauser. [address] , [address], [place], [address], [place]. tel:[phone] Family History Family Member Type Diagnosis Age At Onset No Information Payers Payer name Insurance type Covered alliance party ID Authoriza tion(s) [facility] Out Of State [id number] Social History Type Description Quantity Date Captured [...]
--- NOTE | ~2025-06-26 | XR_ITS ---
EXAMINATION: XR hip LT 2V w AP pelvis, 06/26/2025 13:18 CDT HISTORY: chronic lt hip pain COMPARISON: No comparisons available. Findings: No acute fracture or malalignment. No significant degenerative changes. Soft tissues unremarkable. Impression: No acute fracture or malalignment. Reviewed, dictated and finalized at location P. Impression: No acute fracture or malalignment.
== END 2025-06-26 13:15 | disposition home or self-care (01) ==
LOC: ANHBWCIMG 13:15
PROVIDERS: PCP Family Medicine; Visit Provider Orthopaedic Surgery
DX: M25.552 Pain in left hip (principal)
CPT/HCPCS: 73502

== ENCOUNTER 2025-07-18 13:35 | Outpatient (CLI) | payer OTHER, SELFPAY ==
--- NOTE | ~2025-07-18 | MR_ITS ---
EXAMINATION: MR lumbar spine wo con DATE: 07/18/2025 14:14 INDICATION: Left hip pain. TECHNIQUE: Magnetic resonance imaging (MRI) of the lumbar spine was performed without intravenous contrast. Sequences included sagittal T2-weighted FSE, sagittal T2-weighted FS FSE, sagittal T1-weighted FSE, and axial T2-weighted FSE. COMPARISON: Lumbar spine MRI 07/14/2023 FINDINGS: There is 6 degrees levocurvature of lumbar spine. There is 3 mm retrolisthesis of L2 on L3 and L3 on L4. There are Schmorl's nodes at multiple levels. There is mild chronic anterior wedging of T12 and L1 vertebral bodies. There is mildly decreased disc height at L2-L3, L3-L4, and L4-L5. The distal spinal cord signal intensity is normal. The conus medullaris is at L1-L2. There is a 4.6 cm cyst in right kidney. The following disc levels are specifically discussed: L1-L2: The disc is bulging. There is mild bilateral facet joint osteoarthritis. There is mild bilateral neural foraminal stenosis. There is mild central canal stenosis. L2-L3: The disc is bulging with superimposed left central extrusion. There is moderate right and severe left facet joint osteoarthritis. There is moderate bilateral neural foraminal stenosis. There is moderate central canal stenosis. L3-L4: The disc is bulging with superimposed central extrusion. There is severe bilateral facet joint osteoarthritis. There is moderate bilateral neural foraminal stenosis. There is mild central canal stenosis. There is posterior decompression. L4-L5: The disc is bulging and has an annular fissure. There is severe bilateral facet joint osteoarthritis. There is moderate bilateral neural foraminal stenosis. There is mild central canal stenosis. There is posterior decompression. L5-S1: The disc is bulging and has an annular fissure. There is mild bilateral facet joint osteoarthritis. There is moderate bilateral neural foraminal stenosis. There is mild central canal stenosis. IMPRESSION: 1. Moderate lumbar spondylosis, worsened at L2-L3. Reviewed, dictated and finalized at location E. N MATERIAL VALUE ADDED ASSESSOR
== END 2025-07-18 13:36 | disposition home or self-care (01) ==
LOC: GOSHIMG 13:36
PROVIDERS: PCP Family Medicine; Visit Provider Orthopaedic Surgery
DX: M43.06 Spondylolysis, lumbar region (principal)
CPT/HCPCS: 72148

== ENCOUNTER 2025-07-24 03:31 | Emergency (ER) | payer OTHER, SELFPAY ==
--- OUTSIDE RECORDS SUMMARY | 2002-01-18 07:45 | XMS_ITS | Continuity of Care Document ---
Author Organization [facility] Address [address] [place] [address] [address] [place] [address] Phone Care Team Providers Care Administrative Manager Name Role Phone Analisa Lagos Unavailable Unavailable Advance Directives Directive Yes / No Effective Date File Name No Information Encounters Encounter Description Practice Location Reason(s) For Visit Diagnoses Date Provider Providers Copied on Encounter [facility], [address], [place], [place], [id number], [place] tel:[phone] [facility] No Information 0 7-200 2 Yolis Hauser. [address] , [address], [place], [address], [place]. tel:[phone] Family History Family Member Type Diagnosis Age At Onset No Information Payers Payer name Insurance type Covered republican ID Authoriza tion(s) [facility] Out Of State [id number] Social History Type Description Quantity Date Captured Comments Sex Male Smoking Status No Information Chief Complaint And Reason For Visit No Information Reason For Referral Reason For Referral No Information History Of Present Illness Encounter Date Complaint History Of Prese nt Illness No Information Functional Status Date Functional Assessmen t No Information Instructions Date Instruction Additional Infor mation No Information Assessments Type Assessment Date No Information Patient Care Teams Name Effective Dates (start - stop) Status Members No Information
[2025-07-24 03:41] VITALS: BP 144/86; PULSE 77; RESP 18; TEMP 36.8; O2SAT 98
--- NOTE | 2025-07-24 03:52 | ED.BACK ---
HPI - Back Pain/Injury General Chief Complaint: Back Pain/Injury Stated Complaint: Back Pain Time Seen by Provider: 07/24/25 03:34 Source: patient Mode of arrival: ambulatory Limitations: no limitations History of Present Illness HPI Narrative: This is a 65-year-old male with history of spinal stenosis and recently found lower thoracic compression fracture who presents to the ED for acute on chronic back pain. PAtient states that he is running out of his norco from a prior injury. He has an appointment with pain management on thrusday and is requesting pain medications to last until then. Denies changes in the quality of his symptoms, just states it is getting worse. Denies saddle anesthesia, weakness. Related Data Home Medications ?Medication ?Instructions ?Recorded ?Confirmed ?Last Taken ?Type acetaminophen 500 mg tablet 750 mg PO Q6H PRN Pain 12/11/23 07/06/25 Unknown History tamsulosin 0.4 mg capsule 0.4 mg PO QHS PRN other 12/11/23 07/06/25 Unknown History topiramate 25 mg tablet 25 mg PO HS 12/11/23 07/06/25 Unknown History Allergies Allergy/AdvReac Type Severity Reaction Status Date / Time No Known Allergies Allergy Verified 07/06/25 13:03 Review of Systems Review of Systems: Gen.: Denies fevers or chills Eyes: Denies eye pain or visual change ENT: Denies congestion Respiratory: Denies shortness of breath or cough CV: Denies chest pain or palpitations GI: Denies abdominal pain nausea, emesis or diarrhea denies burning, urgency, frequency or hematuria Musculoskeletal: As per HPI Neuro: Denies numbness, tingling, weakness or focal weakness Skin: Denies rash Except as documented, all other systems reviewed and negative [facility] Past Medical History Medical History Trochanteric bursitis of left hip HTN (hypertension) Surgical History Surgical History History of implantation of penile prosthesis History of lumbar fusion L4-5 History of fusion of cervical spine History of tibial fracture s/p ORIF R Family History Family History Father Lung cancer Mother Lung cancer Hypertension Social History Social History Second hand tobacco smoke exposure: No Alcohol intake: current Alcohol use details: rarely Substance use: never Substance use type: does not use Lack of Transportation: No Lack of Food: Never True Current Housing: I Have Housing Concerned About Future Housing: No Difficulty Paying Gas/Electric Bills: No Difficulty Paying for Meds: No Currently Unemployed: YES Education: Master's Degree or Higher Difficulty w/ Childcare or Family Care: No Living arrangements: with family Occupation/Education: occupation Gender identity (if verbalized by the patient): Male Spiritual care concerns: No Exam Narrative: APPEARANCE: No acute distress, nontoxic, resting in bed HEENT: Normocephalic, atraumatic, OMM RESPIRATORY: No respiratory distress CARDIOVASCULAR: Appears well perfused ABDOMINAL: Nondistended MUSCULOSKELETAl: Moves all extremities. No obvious deformities NEURO: Awake and alert. SKIN:: Warm, dry. No rashes lesions or abrasions PSYCHIATRIC: Normal affect/mood, Course Vital Signs Vital signs: Vital Signs Temperature 98.2 F 07/24/25 03:41 Pulse Rate 77 07/24/25 03:41 Respiratory Rate 18 07/24/25 03:41 Blood Pressure 144/86 H 07/24/25 03:41 Pulse Oximetry 98 07/24/25 03:41 Oxygen Delivery Room Air 07/24/25 03:41 Temperature 98.2 F 07/24/25 03:41 Pulse Rate 90 07/24/25 04:20 Respiratory Rate 19 07/24/25 04:20 Blood Pressure 130/90 07/24/25 04:20 Pulse Oximetry 97 07/24/25 04:20 Oxygen Delivery Room Air 07/24/25 03:41 MDM - Back Pain/Injury MDM Narrative Medical decision making narrative: 65-year-old male Presenting for acute on chronic back pain. On initial evaluation patient was in no acute distress afebrile, hemodynamic stable. Patient's pain is same quality as it normally is but is worse and he is running out of his pain medications. He has an appointment with pain management but is in need of some medications to fill and in the meantime. He has no red flag signs for cauda equina or epidural abscess so additional imaging is not indicated at this time. Patient was given a dose of Chester here in the ED. He was given a short course of Chester for home. He was advised to follow-up with pain management as scheduled. Patient was agreeable to this plan. Given strict return precautions. Differential Diagnosis Differential diagnosis: Likely lumbar radiculopathy, sciatica, strain of lumbar region and thoracic back pain Medical Records Attestation: I reviewed the patient's medical records. Medical records narrative: MRI lumbar spine 07/19/2025 chronic appearing T12 and L1 compression fractures Discharge Plan Discharge Clinical Impression: Acute on chronic back pain Patient Disposition: Home Condition: Stable Instructions: Antibiotic Form, Acute Low Back Pain (ED) Additional Instructions: Take Chester as prescribed. Follow-up with pain management on as scheduled. Return to the ED for any new or worsening symptoms. Patient Language: Kiswahili Prescriptions: New hydrocodone-acetaminophen 5-325 mg tablet 1 tablet PO Q6H PRN (Reason: pain (scale score 7-10)) Qty: 12 0RF No Action zolpidem [Ambien] 10 mg tablet 10 mg PO QHS PRN (Reason: insomnia) Qty: 30 0RF alprazolam [Xanax] 0.5 mg tablet 0.5 mg PO DAILY PRN (Reason: anxiety) Qty: 14 0RF topiramate 25 mg tablet 25 mg PO HS acetaminophen 500 mg Tablet 750 mg PO Q6H PRN (Reason: Pain) tamsulosin 0.4 mg capsule 0.4 mg PO QHS PRN (Reason: other) Follow-up/Referrals: Boby Fuller MD [Primary Care Provider, Family Practice]
--- OUTSIDE RECORDS SUMMARY | 2025-07-24 04:05 | XMS_ITS | Patient Health Record ---
Author Organization [facility] Address [address] [place] [address] Care Team Providers Care Media Center Assistant Name Role Phone Boby Fuller Primary Care Provider Montez Shankar Unavailable [phone] Allergies No Known Allergies Reason For Referral No Information Medications Medication SIG (Take, Route, Frequency, Duration) Notes Start Date End Date Status oxyCODONE-Acetaminophen 5-325 MG 1 tablet as needed Orally twice a day (bid) for 7 days 07/14/2023 Active metroNIDAZOLE 500 MG TAKE 1 TABLET BY MO [facility] EVERY 6 HOURS Oral for 10 Not-Taking Potassium Chloride Ellen ER 20 MEQ TAKE 2 TABLETS BY MOUTH ONCE DAILY Oral for 30 Active Tamsulosin HCl 0.4 MG TAKE 1 CAPSULE BY MOUTH EVERY DAY AT BEDTIME Oral for 30 Active dexAMETHasone 4 MG Oral for 14 Not-Taking Omeprazole 40 MG Oral for 30 A ctive Lisinopril 40 MG Oral for 30 A ctive Ibuprofen 100 MG as directed Orally x3 Active Gabapentin 100 MG 2 capsule Orally QHS Active Social History Tobacco Use: Social History Observation Description Date Details (start date - stop date) Never Smoker NA - NA Alcohol Screening Question Answer Notes Alcoholic drink in the past year No Points 0 Interpretation Negative Screening Question Answer Notes Are you a current smoker? 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 Plan Of Treatment Next Appt Details Provider Name:Montez Bass , 07/27/2025 11:00:00 AM, [address] [facility], [place], [address], Insurance Providers Payer Name Payer Address Payer Phone Subscriber Number Group Number Insured Name Patient Relationship to Insured Coverage Start Date Coverage End Date [employer] [address] [address] [place] [address] [phone] [id number] Day, Surjit Self - patient is the insured Medical (General) History Medical History History ICD Code High Blood Pressure Depression Headaches Surgical History Surgery Date(Month/Year) Cervical Fusion 2005 Laminectomy L4 L5 2015 Umbilical Hernia Repair 2011 Lipomas Removed 2011 Tibia SX 2013 Penile Implant 2021
--- OUTSIDE RECORDS SUMMARY | 2025-07-24 04:05 | XMS_ITS | Clinical Summary ---
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 Gender Identity Not on file Sexual Orientation [...] exists Zoster Vaccine Completed 07/01/2022, 04/07/2022 [place] [address] [facility] PREFERRED Member Subscriber Plan / Payer (Ef fective 2016-Present) Name:Surjit Flaherty MD Relation to Subscriber:Self Name:Surjit Flaherty MD Payer ID:[id number] (NA) Type:[facility] Address: [facility] [id number] [place] [facility] Care Teams Machinist Job Setter Relationship Specialty Start Date End Date Boby Fuller MD [address] [facility] [address] [place] [address] PCP - General Family Medicine 05/06/24
--- OUTSIDE RECORDS SUMMARY | 2025-07-24 04:05 | XMS_ITS | Clinical Summary ---
Author Organization [facility] Address [address], [address] [address] Phone Care Team Providers Care Conveyor Mechanic Name Role Phone Marilyn Jones APRN, CNP Unavailable + Marilyn Jones APRN, CNP Primary Care Prov ider Allergies No known active allergies Medications baclofen [...] Lnp-s, Pf, 3 0 Mcg/0.3 Ml Dose ([facility]) 01/09/2021,08/30/2020 DTAP VACCINE 07/15/2014 Influenza Vaccine greater [...] Virus (RSV) Immunization (Adult) (1 - Risk 50-74 years 1-dose series) 2012 Colonoscopy 02/26/2024 02/25/2019 Colorectal Cancer Screening 02/26/2024 Influenza Immunization (#1) 05/15/202505/15, 08/13/2021, 09/09/2018, Additional history exists SARS-COV-2 Immunization ( season) 2025 09/27/2021, 01/09/2021, 08/30/2020 DTaP/Tdap/Td Immunization [...] CDT) Prostatic Specific Antigen, Free 0.77 ng/mL [facility] ARCH [id number] F 01/29/2023 6:13 PM CDT [facility] PSA, TOTAL (PROSTATIC SPECIFIC ANTIGEN) 2.67 <4.00 ng/mL [facility] ARCH [id number] B 01/29/2023 6:13 PM CDT [facility] PSA, % FREE 28.8 % 01/29/2023 6:13 PM CDT [facility] Comment: PSA NG/ML FREE PSA % [...] CDT us Marilyn Jones APRN, CNP CHEMISTRY ORDERABL ES Final Result [facility] [address] [place] [address], from Last 3 Months or Most Recently Relevant to Health Maintenance Insurance Care Teams Conveyor Mechanic Relationship Specialty Start Date End Date Marilyn Jones APRN, ORNAMENTER HAND [address] [address] PCP - General Advanced Practice Nurse 12/04/21 Marilyn Jones YUMIKO, ORNAMENTER [employer] [address] [address] Nurse Practitioner Advanced Practice Nurse 05/28/21
--- OUTSIDE RECORDS SUMMARY | 2025-07-24 04:05 | XMS_ITS | Clinical Summary ---
Author Organization [facility] Address [address] [place] [address] Care Team Providers Care Cash Office Worker Name Role Phone Feng Forrester MD Primary Care Provider [phone] Source Comments [facility],non-owned Affiliates and Associated Physician Practices is amultiple site organization consisting of ambulatory clinics and hospital sitesin [place], [place], [place] and [place]. This disclosure is being madepursuant to the Care Everywhere program and may not contain all information available regarding this patient. 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
[2025-07-24] MEDS: HYDROcodone/acetaminophen (*CRX) 5-325 MG TABLET 1 TAB PO (04:17)
[2025-07-24 04:20] VITALS: BP 130/90; PULSE 90; RESP 19; O2SAT 97
== END 2025-07-24 04:21 | disposition home or self-care (01) ==
LOC: ANHED 04:04
PROVIDERS: Emergency Provider Student in an Organized Health Care Education/Training Program; PCP Family Medicine
DX: M54.9 Dorsalgia, unspecified (principal); G89.29 Other chronic pain; I10 Essential (primary) hypertension
CPT/HCPCS: 99283; A9270